=== PATIENT | male | born 1945 | race Caucasian/White ===

== ENCOUNTER 2023-11-24 09:41 | Outpatient (OUT) | payer MEDICARE, SELFPAY ==
--- NOTE | 2023-11-24 10:00 | ECG_ITS ---
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
--- NOTE | 2023-11-24 10:55 | P.GSHP_ITS ---
History of Present Illness History of Present Illness Chief complaint: right etd Narrative: Patient presents for preadmission testing. The patient reports decreased hearing in his right ear with a history of otitis media and previous ear tubes. The patient denies fever, sore throat, epistaxis, ear drainage, or any other complaints. Review of Systems ROS Narrative REVIEW OF SYSTEMS: Negative except as stated in HPI, ten or more systems reviewed. Constitutional: No fever , chills, weakness ENT: No sore throat or epistaxis Cardiovascular: No chest pain, palpitations, or activity intolerance. Chronic intermittent lower extremity edema Respiratory: No shortness of breath, cough, or wheezing Musculoskeletal: No joint pain or swelling Gastrointestinal: No abdominal pain, constipation, diarrhea, or vomiting Genitourinary: No dysuria or hematuria Neurological: No numbness, tingling, weakness, or headache Psychiatric: No mood changes PFSH [facility] Medical History (Updated 11/24/23 @ 11:02 by Flavia Andre NP) Decreased hearing ?H91.90 - Unspecified hearing loss, unspecified ear (ICD-10) Extremity edema ?R60.0 - Localized edema (ICD-10) Delayed recovery from anesthesia Contusion of right hip ?S70.01XA - Contusion of right hip, initial encounter (ICD-10) Perforation of tympanic membrane ?H72.90 - Unspecified perforation of tympanic membrane, unspecified ear (ICD- 10) Hypertension ?I10 - Essential (primary) hypertension (ICD-10) Hyperlipidemia ?E78.5 - Hyperlipidemia, unspecified (ICD-10) Gout ?M10.9 - Gout, unspecified (ICD-10) Diverticulosis ?K57.90 - Diverticulosis of intestine, part unspecified, without perforation or abscess without bleeding (ICD-10) Hypothyroid ?E03.9 - Hypothyroidism, unspecified (ICD-10) Foot drop ?M21.379 - Foot drop, unspecified foot (ICD-10) Otitis media ?H66.90 - Otitis media, unspecified, unspecified ear (ICD-10) Surgical History (Updated 11/24/23 @ 10:32 by Nury Murguia RN) History of colonoscopy ?Z98.890 - Other specified postprocedural states (ICD-10) S/P cataract extraction and insertion of intraocular lens ?Z98.49 - Cataract extraction status, unspecified eye (ICD-10) ?Z96.1 - Presence of intraocular lens (ICD-10) History of tympanoplasty ?Z98.890 - Other specified postprocedural states (ICD-10) History of tonsillectomy ?Z90.89 - Acquired absence of other organs (ICD-10) H/O ventral hernia repair ?Z98.890 - Other specified postprocedural states (ICD-10) ?Z87.19 - Personal history of other diseases of the digestive system (ICD-10) Hx of cholecystectomy ?Z90.49 - Acquired absence of other specified parts of digestive tract (ICD- 10) History of carpal tunnel release ?Z98.890 - Other specified postprocedural states (ICD-10) Hx of appendectomy ?Z90.49 - Acquired absence of other specified parts of digestive tract (ICD- 10) 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 Highest level of school completed/degree received: high school graduate Meds Home Medications and Allergies Home Medications Medication Instructions Recorded Confirmed Type allopurinol 100 mg tablet 100 mg PO Q12H 11/24/23 11/24/23 History cholecalciferol (vitamin D3) 25 25 mcg PO DAILY 11/24/23 11/24/23 History mcg (1,000 unit) tablet (Vitamin D3) doxazosin 8 mg tablet 8 mg PO DAILY 11/24/23 11/24/23 History levothyroxine 112 mcg tablet 112 mcg PO DAILY 11/24/23 11/24/23 History lisinopril 10 mg tablet 10 mg PO DAILY 11/24/23 11/24/23 History simvastatin 20 mg tablet 20 mg PO DAILY 11/24/23 11/24/23 History triamterene 37.5 1 cap PO DAILY PRN edema 11/24/23 11/24/23 History mg-hydrochlorothiazide 25 mg capsule Allergies Allergy/AdvReac Type Severity Reaction Status Date / Time No Known Drug Allergies Allergy Verified 11/24/23 10:17 Exam Narrative Exam Narrative: Constitutional: Awake, alert, comfortable, well-appearing, nontoxic, interactive, vital signs as charted Head: Normocephalic, atraumatic ENT: Left tympanic membrane pearly solis, nonerythematous, noninjected; Right tympanic membrane with effusion, naris patent, posterior oropharynx clear, oral mucosa moist Neck: Supple, normal appearance, normal range of motion, no meningeal signs, no lymphadenopathy Respiratory: No respiratory distress, breath sounds clear Cardiovascular: Regular rate and rhythm, strong and regular heart tones Musculoskeletal: Ambulates with a cane, brace intact to left ankle, no edema Skin: No rashes or induration, no lesions, only visible skin inspected Neuro: normal sensation Psychiatric: Oriented ?3, normal affect Assessment and Plan Assessment and Plan (1) Otitis media: (2) Decreased hearing: Plan Right myringotomy and insertion of ventilation tube, T-tube scheduled with Dr. Richardson 12/07/2023.
[2023-11-24 11:04] LABS: Basophils Percent Auto 0.6 % (0.2-2.0); Eosinophils Absolute Auto 0.1 10^3/uL (0.0-0.7); Eosinophils Percent Auto 1.7 % (0.9-7.0); Hematocrit 38.6 % (42.0-54.0); Hemoglobin 12.5 g/dL (14.0-18.0); Immature Granulocytes Abs Auto 0.02 10^3/uL (0.00-0.03); Immature Granulocytes Pct Auto 0.3 % (0.0-0.5); Lymphocytes Absolute Auto 1.7 10^3/uL (1.2-3.8); Lymphocytes Percent Auto 26.1 % (20.5-60.0); Mean Corpuscular HGB Conc 32.4 g/dL (29.9-35.2); Mean Corpuscular Hemoglobin 32.3 pg (25.9-34.0); Mean Corpuscular Volume 99.7 fL (80.0-94.0); Mean Platelet Volume 10.2 fL (9.5-13.5); Monocytes Absolute Auto 0.6 10^3/uL (0.3-0.8); Monocytes Percent Auto 9.4 % (1.7-12.0); Neutrophils Percent Auto 61.9 % (43.0-75.0); Platelet Count 149 10^3/uL (150-450); Red Blood Count 3.87 10^6/uL (4.70-6.10); Red Cell Distribution Width 13.2 % (11.0-15.0); White Blood Count 6.4 10^3/uL (4.0-11.0)
[2023-11-24 11:21] LABS: Anion Gap 8.3; Calcium 9.1 mg/dL (8.5-10.1); Chloride 103 mmol/L (98-107); Estimated GFR (African America >60 (>=60); Estimated GFR (Non-African Ame 54 (>=60); Glucose 99 mg/dL (74-106); Potassium 4.3 mmol/L (3.5-5.1); Sodium 136 mmol/L (136-145)
== END 2023-11-24 09:42 | disposition home or self-care (01) ==
LOC: PST 09:42
PROVIDERS: PCP Family Medicine; Visit Provider Otolaryngology
DX: Z01.810 Encounter for preprocedural cardiovascular examination (principal); Z01.812 Encounter for preprocedural laboratory examination; Z01.818 Encounter for other preprocedural examination; H65.91 Unspecified nonsuppurative otitis media, right ear
CPT/HCPCS: 80048; 85025; 93005; G0463

== ENCOUNTER 2023-12-20 13:10 | Outpatient (OUT) | payer MEDICARE, SELFPAY ==
--- OUTSIDE RECORDS SUMMARY | 2023-12-20 13:31 | XMS_ITS | CCD ---
Author Name Unknown Address [address] [place] [address] Organization [facility] Care Team Providers Care Cooling Room Attendant Name Role Phone DR NICHOLAS HARRIS Consulting Unavailable STEVEN, DR NICHOLAS Roach Attending Unavailable STEVEN, DR NICHOLAS Roach Admitting Unavailable DR NICHOLAS HARRIS Primary Care Unavailable NICHOLAS HARRIS Attending Unavailable PJ ARORA Attending Unavailable JC FERREIRA Referring Unavailable JC FERREIRA Attending Unavailable Problems Problem Classification Problem Date Documented Da te Episodic/Chronic Disorders of lipid metabolism (1 source) Hyperlipidemia, unspecified; Translations: [HYPERLIPIDEMIA UNSPECIFIED] Onset: 02-19-2023 Chronic Essential hypertension (1 source) Essential (primary) hypertension; Translations: [ESSENTIAL PRIMARY HYPERTENSION] Onset: 02-19-2023 Chronic Nutritional deficiencies (4 sources) Vitamin D deficiency, unspecified; Translations: [VITAMIN D DEFICIENCY UNSPECIFIED] Onset: 02-11-2023 Chronic Other aftercare (1 source) Other intermediate (current) drug therapy; Translations: [OTH SENIOR CARE CURRENT DRUG THERAPY] Onset: 02-19-2023 Episodic Other screening for suspected conditions (not mental disorders or infectious disease) (1 source) Encounter for screening for malignant neoplasm of prostate; Translations: [ENC SCREEN MALIG NEOPLASM PROSTATE] Onset: 02-19-2023 Episodic Thyroid disorders (1 source) Hypothyroidism, unspecified; Translations: [HYPOTHYROIDISM UNSPECIFIED] Onset: 02-19-2023 Chronic Results Test Name Value Interpretation Reference Range Facil ity CBC AUTO DIFFon 02-11-2023 BASO # 0.1 103/ul Normal 0.0-0.1 [facility] Comment on above: Performed By: #### C BC #### [facility] [address] [address] [address] Baldemar Marc Basophils/100 WBC (Bld) 1.0 % Normal 0.2-2.0 [facility] Comment on above: Performed By: #### C BC #### [facility] [address] [place] [address] Dr. Baldemar Marc EO # 0.1 103/ul Normal 0.0-0.7 [facility] Comment on above: Performed By: #### C BC #### [facility] [address] [place] [address] Dr. Baldemar Marc Eosinophils/100 WBC (Bld) 1.4 % Normal 0.9-7.0 [facility] Comment on above: Performed By: #### C BC #### [facility] [address] [place] [address] Dr. Baldemar Marc Erythrocyte distribution width (RBC) [Ratio] 13.3 % Normal 11.0-15.0 [facility] Comment on above: Performed By: #### C BC #### [facility] [address] [place] [address] Dr. Baldemar Marc Hematocrit (Bld) [Volume fraction] 40.0 % Critically low 42.0-54.0 [facility] Comment on above: Performed By: #### C BC #### [facility] [address] [place] [address] Dr. Baldemar Marc Hemoglobin (Bld) [Mass/Vol] 13.5 g/dL Critically low 14.0-18.0 [facility] Comment on above: Performed By: #### C BC #### [facility] [address] [place] [address] Dr. Baldemar Marc IG # 0.01 10e3/ul Normal 0.00-0.03 [facility] Comment on above: Performed By: #### C BC #### [facility] [address] [place] [address] Dr. Baldemar Marc IG % 0.2 % Normal 0.0-0.5 [facility] Comment on above: Performed By: #### C BC #### [facility] [address] [place] [address] Dr. Baldemar Marc LYMPH # 1.5 103/ul Normal 1.2-3.8 [facility] Comment on above: Performed By: #### C BC #### [facility] [address] [place] [address] Dr. Baldemar Marc Lymphocytes/100 WBC (Bld) 29.7 % Normal 20.5-60.0 [facility] Comment on above: Performed By: #### C BC #### [facility] [address] [place] [address] Dr. Baldemar Marc MANUAL DIFF REQ NO Normal [facility] Comment on above: Performed By: #### C BC #### [facility] [address] [place] [address] Dr. Baldemar Marc MCH (RBC) [Entitic mass] 32.5 pg Normal 25.9-34.0 [facility] Comment on above: Performed By: #### C BC #### [facility] [address] [place] [address] Dr. Baldemar Marc MCHC (RBC) [Mass/Vol] 33.8 g/dL Normal 29.9-35.2 [facility] Comment on above: Performed By: #### C BC #### [facility] [address] [place] [address] Dr. Baldemar Marc MCV (RBC) [Entitic vol] 96.2 fL Critically high 80.0-94.0 [facility] Comment on above: Performed By: #### C BC #### [facility] [address] [place] [address] Dr. Baldemar Marc MONO # 0.4 103/ul Normal 0.3-0.8 [facility] Comment on above: Performed By: #### C BC #### [facility] [address] [place] [address] Dr. Baldemar Marc Monocytes/100 WBC (Bld) 8.5 % Normal 1.7-12.0 [facility] Comment on above: Performed By: #### C BC #### [facility] [address] [place] [address] Dr. Baldemar Marc NEUT # 3.1 103/ul Normal 1.4-6.5 [facility] Comment on above: Performed By: #### C BC #### [facility] [address] [address] [address] Baldemar Marc Neutrophils/100 WBC (Bld) 59.2 % Normal 43.0-75.0 [facility] Comment on above: Performed By: #### C BC #### [facility] [address] [address] [address] Baldemar Marc Platelet mean volume (Bld) [Entitic vol] 10.1 fL Normal 9.5-13.5 [facility] Comment on above: Performed By: #### C BC #### [facility] [address] [address] [address] Baldemar Marc PLT 147 103/ul Critically low 150-450 [facility] Comment on above: Performed By: #### C BC #### [facility] [address] [place] [address] Dr. Baldemar Marc RBC 4.16 106/ul Critically low 4.70-6.[address] [facility] Comment on above: Performed By: #### C BC #### [facility] [address] [address] [address] Baldemar Marc WBC 5.2 103/ul Normal 4.0-11.0 [facility] Comment on above: Performed By: #### C BC #### [facility] [address] [place] [address] Dr. Baldemar Marc FREE T3on 02-11-2023 FREE T3 2.49 pg/mlL Normal 2.18-3.98 [facility] Comment on above: Performed By: #### L IPID, LIVER, TSH, FT3, BMP #### [facility] [address] [address] [address] Baldemar Marc FREE T4on 02-11-2023 Free T4 [Mass/Vol] 1.30 ng/dL Normal 0.76-1.46 [facility] Comment on above: Performed By: #### F T4, VITAD, PSASC #### [facility] [address] [place] [address] Dr. Baldemar Marc LIPID PROFILEon 02-11-2023 CHOL-HDL RATIO NORM SEE BELOW Normal [facility] Comment on above: Result Comment: 3.3 - 4.4 LOW RISK 4.4 - 7.1 AVERAGE RISK 7.1 - 11.0 MODERATE RISK >11.0 HIGH RISK Performed By: #### L IPID, LIVER, TSH, FT3, BMP #### [facility] [address] [address] [address] Baldemar Marc Cholesterol [Mass/Vol] 111 mg/dL Normal <=200 [facility] Comment on above: Performed By: #### L IPID, LIVER, TSH, FT3, BMP #### [facility] [address] [address] [address] Baldemar Marc Cholesterol in HDL [Mass/Vol] 49 mg/dL Normal 40-60 [facility] Comment on above: Performed By: #### L IPID, LIVER, TSH, FT3, BMP #### [facility] [address] [address] [address] Baldemar Marc Cholesterol in LDL [Mass/Vol] 49.0 mg/dL Normal [facility] Comment on above: Performed By: #### L IPID, LIVER, TSH, FT3, BMP #### [facility] [address] [address] [address] Baldemar Marc Cholesterol.total/C holesterol in HDL [Mass ratio] 2.3 {ratio} Normal [facility] Comment on above: Performed By: #### L IPID, LIVER, TSH, FT3, BMP #### [facility] [address] [address] [address] Baldemar Mrac HDL NORMAL > or = 60 mg/dl - LO W CARDIOVASCULAR RISK <40 mg/dl - HIGH CARDIOVASCULAR RISK Normal [facility] Comment on above: Performed By: #### L IPID, LIVER, TSH, FT3, BMP #### [facility] [address] [address] [address] Baldemar Marc LDL CALC NORMAL SEE BELOW Normal [facility] Comment on above: Result Comment: <100 mg/dl OPTIMAL 100 - 129 mg/dl NEAR OR ABOVE OPTIMAL 130 - 159 mg/dl BORDERLINE HIGH 160 - 189 mg/dl HIGH >190 mg/dl VERY HIGH Performed By: #### L IPID, LIVER, TSH, FT3, BMP #### [facility] [address] [place] [address] Dr. Baldemar Marc Triglyceride [Mass/Vol] 65 mg/dL Normal <=150 [facility] Comment on above: Performed By: #### L IPID, LIVER, TSH, FT3, BMP #### [facility] [address] [address] [address] Baldemar Marc VLDL CALC 13.0 mg/dL Normal [facility] Comment on above: Performed By: #### L IPID, LIVER, TSH, FT3, BMP #### [facility] [address] [place] [address] Dr. Baldemar Marc LIVER PROFILEon 02-11-2023 Albumin [Mass/Vol] 3.9 g/dL Normal 3.4-5.0 [facility] Comment on above: Performed By: #### L IPID, LIVER, TSH, FT3, BMP #### [facility] [address] [place] [address] Dr. Baldemar Marc Albumin/Globulin [Mass ratio] 1.2 {ratio} Normal [facility] Comment on above: Performed By: #### L IPID, LIVER, TSH, FT3, BMP #### [facility] [address] [place] [address] Dr. Baldemar Marc ALP [Catalytic activity/Vol] 69 U/L Normal 46-116 [facility] Comment on above: Performed By: #### L IPID, LIVER, TSH, FT3, BMP #### [facility] [address] [place] [address] Dr. Baldemar Marc ALT [Catalytic activity/Vol] 22 U/L Normal 16-63 [facility] Comment on above: Performed By: #### L IPID, LIVER, TSH, FT3, BMP #### [facility] [address] [place] [address] Dr. Baldemar Marc AST [Catalytic activity/Vol] 17 U/L Normal 15-37 [facility] Comment on above: Performed By: #### L IPID, LIVER, TSH, FT3, BMP #### [facility] [address] [address] [address] Baldemar Marc BILI, CONJUGATED 0.2 mg/dL Normal 0.0-0.2 [facility] Comment on above: Performed By: #### L IPID, LIVER, TSH, FT3, BMP #### [facility] [address] [place] [address] Dr. Baldemar Marc Bilirubin [Mass/Vol] 0.6 mg/dL Normal 0.2-1.0 [facility] Comment on above: Performed By: #### L IPID, LIVER, TSH, FT3, BMP #### [facility] [address] [place] [address] Dr. Baldemar Marc Globulin (S) [Mass/Vol] 3.2 g/dL Normal [facility] Comment on above: Performed By: #### L IPID, LIVER, TSH, FT3, BMP #### [facility] [address] [place] [address] Dr. Baldemar Marc Protein [Mass/Vol] 7.1 g/dL Normal 6.4-8.2 [facility] Comment on above: Performed By: #### L IPID, LIVER, TSH, FT3, BMP #### [facility] [address] [place] [address] Dr. Baldemar Marc PROF CHEM 8 (BAS METB)on Anion gap [Moles/Vol] 11.4 mmol/L Normal [facility] Comment on above: Performed By: #### L IPID, LIVER, TSH, FT3, BMP #### [facility] [address] [place] [address] Dr. Baldemar Marc Calcium [Mass/Vol] 9.4 mg/dL Normal 8.5-10.1 [facility] Comment on above: Performed By: #### L IPID, LIVER, TSH, FT3, BMP #### [facility] [address] [place] [address] Dr. Baldemar Marc Chloride [Moles/Vol] 102 mmol/L Normal 98-107 [facility] Comment on above: Performed By: #### L IPID, LIVER, TSH, FT3, BMP #### [facility] [address] [place] [address] Dr. Baldemar Marc CO2 [Moles/Vol] 30.8 mmol/L Normal 21.0-32.0 [facility] Comment on above: Performed By: #### L IPID, LIVER, TSH, FT3, BMP #### [facility] [address] [address] [address] Baldemar Marc Creatinine [Mass/Vol] 1.13 mg/dL Normal 0.70-1.30 [facility] Comment on above: Performed By: #### L IPID, LIVER, TSH, FT3, BMP #### [facility] [address] [place] [address] Dr. Baldemar Marc EGFR-AF LATVIAN >60 Normal >=60 [facility] Comment on above: Performed By: #### L IPID, LIVER, TSH, FT3, BMP #### [facility] [address] [place] [address] Dr. Baldemar Marc EGFR-NON AF LATVIAN >60 Normal >=60 [facility] Comment on above: Performed By: #### L IPID, LIVER, TSH, FT3, BMP #### [facility] [address] [place] [address] Dr. Baldemar Marc Glucose [Mass/Vol] 104 mg/dL Normal 74-106 [facility] Comment on above: Performed By: #### L IPID, LIVER, TSH, FT3, BMP #### [facility] [address] [place] [address] Dr. Baldemar Marc Potassium [Moles/Vol] 4.2 mmol/L Normal 3.5-5.1 [facility] Comment on above: Performed By: #### L IPID, LIVER, TSH, FT3, BMP #### [facility] [address] [place] [address] Dr. Baldemar Marc Sodium [Moles/Vol] 140 mmol/L Normal 136-145 [facility] Comment on above: Performed By: #### L IPID, LIVER, TSH, FT3, BMP #### [facility] [address] [address] [address] Baldemar Marc Urea nitrogen [Mass/Vol] 17.0 mg/dL Normal 7.0-18.0 [facility] Comment on above: Performed By: #### L IPID, LIVER, TSH, FT3, BMP #### [facility] [address] [place] [address] Dr. Baldemar Marc Urea nitrogen/Creatinine [Mass ratio] 15.0 mg/mg Normal [facility] Comment on above: Performed By: #### L IPID, LIVER, TSH, FT3, BMP #### [facility] [address] [place] [address] Dr. Baldemar Marc TSHon 02-11-2023 TSH 0.571 uIU/mL Normal 0.358-3.740 [facility] Comment on above: Performed By: #### L IPID, LIVER, TSH, FT3, BMP #### [facility] [address] [place] [address] Dr. Baldemar Marc VITAMIN D 25 OHon 02-11-2023 VIT D 25-OH 46.2 ng/mL Normal [facility] Comment on above: Performed By: #### F T4, VITAD, PSASC #### [facility] [address] [place] [address] Dr. Baldemar Marc VIT D RANGES SEE BELOW Normal [facility] Comment on above: Result Comment: <20 ng/mL Vit D deficient 20 - <30 ng/mL Vit D insufficient 30 - 100 ng/mL Vit D sufficient >100 ng/mL Potential Toxicity Performed By: #### F T4, VITAD, PSASC #### [facility] [address] [place] [address] Dr. Baldemar Marc Encounters Encounter Date Encounter Type Care Provider Facility Start: 12-02-2023 End: 12-02-2023 ambulatory NICHOLAS HARRIS Not Available Start: 11-03-2023 End: 11-03-2023 ambulatory JC FERREIRA Not Available Start: 11-01-2023 End: 11-01-2023 ambulatory PJ ARORA Not Available Start: 02-11-2023 End: 02-12-[address] NICHOLAS HARRIS Facility:[facility] Procedures Date Procedure Procedure Detail Performing Clinician Start: 02-11-[address] NICHOLAS CHILEL Comment on above: Performed By: #### F T4, VITAD, PSASC #### [facility] [address] [place], [place] [address] Dr. Baldemar Marc Payers Date Payer Category Payer Medicare [id number] 1958 Unknown [id number] 1945 Unknown [id number] [id number] [id number] 1945 Unknown [id number] [id number] 1945 Unknown [id number] 1945 Unknown [id number] Summary Purpose Family History No Family History Records FoundNo Family History Records Found Advance Directives No Advanced Directives Records FoundNo Advanced Directives Records Found Additional Source Comments (unrecognized sect ion and content) No Status Records FoundNo Status Records Found INFORMATION SOURCE (unrecogn ized section and content) DATE CREATED AUTHOR [facility] DATE CREATED AUTHOR AUTHOR'S ORGANIZ ATION 12/03/2023 [facility] Special[facility] FOR RECORDS PERTAINING TO PATIENTS WHO ARE OR HAVE BEEN ENROLLED IN A CHEMICAL DEPENDENCY/SUBSTANCEABUSE PROGRAM, SOME INFORMATION MAY BE OMITTED. This clinical summary was aggregated from multiple sources. Caution should be exercised in using it in the provision of clinical care. This summary normalizes information from multiple sources, and as a consequence, information in this document may materially change the coding, format and clinical context of patient data. In addition, data may be omitted in some cases. CLINICAL DECISIONS SHOULD BE BASED ON THE PRIMARY CLINICAL RECORDS. [facility] Organizer [facility]. provides no warranty or guarantee of the accuracy or completeness of information in this document.
== END 2023-12-20 13:11 | disposition home or self-care (01) ==
LOC: PST 13:11
PROVIDERS: PCP Family Medicine; Visit Provider Otolaryngology
DX: Z01.818 Encounter for other preprocedural examination (principal); H65.91 Unspecified nonsuppurative otitis media, right ear; I10 Essential (primary) hypertension

== ENCOUNTER 2023-12-28 08:38 | Day surgery (SDC) | payer MEDICARE, SELFPAY ==
[2023-11-24 10:25] VITALS: BP 126/73; PULSE 80; RESP 16; TEMP 36.3; O2SAT 96; BMI 32.9
--- NOTE | 2023-12-20 11:31 | PC.NURSE ---
States no changes in medication or medical assessment since last interview; has recovered from shingles
[2023-12-28] VITALS (9 sets, daily range): BP systolic 88–137; BP diastolic 58–83; PULSE 60–85; RESP 12–20; TEMP 36.6–36.7; O2SAT 12–97; BMI 33.1
--- NOTE | 2023-12-28 | OP_ITS ---
OPERATION DATE: 12/28/2023 PRIMARY CARE PHYSICIAN: Jori Anne M.D. SURGEON: Luanne Richardson M.D. PREOPERATIVE DIAGNOSIS: Right eustachian tube dysfunction and otitis media with effusion. POSTOPERATIVE DIAGNOSIS: Right eustachian tube dysfunction and otitis media with effusion. PROCEDURE: Right myringotomy and tube with microdissection, placement of a T- tube. ANESTHESIA: General. COMPLICATIONS: None. FINDINGS: Serous effusions. INDICATIONS: This 78-year-old man with a life long history of chronic eustachian tube dysfunction presented with right otitis media with effusion, unresponsive to aggressive medical management. PROCEDURE: Patient identified in the holding area and taken back to the OR where he was placed in the supine position. After induction of general anesthesia, the right ear was approached with the otomicroscope. An anterior radial myringotomy was performed. Serous effusion was suctioned from the ear. A modified Connor?s T-tube was folded and inserted through the myringotomy and opened in the middle ear using microdissection. Patient was then awakened and taken to the recovery room in good condition. KRISTY
--- OUTSIDE RECORDS SUMMARY | 2023-12-28 08:50 | XMS_ITS | CCD ---
Author Name Unknown Address [address] [facility] [address] [place] [id number] Organization [facility] Care Team Providers Care Message Clerk Name Role Phone DR JORI HARRIS Consulting Unavailable STEVEN, DR JORI Roach Attending Unavailable DR JORI HARRIS Admitting Unavailable DR JORI HARRIS Primary Care Unavailable JORI HARRIS Attending Unavailable PJ ARORA Attending Unavailable JC RICHARDSON Referring Unavailable JC RICHARDSON Attending Unavailable Jori Harris MD Primary Care Provider [phone] Medications Current Medications Medication Drug Class(es) Dates Sig (Normalized) Sig (Original) allopurinol 100 mg oral tablet (1 source) Xanthine Oxidase Inhibitor take 1 tablet by mouth every twelve hours allopurinol (Zyloprim) 100 MG tablet Take 100 mg by mouth every 12 (twelve) hours. 0 Active doxazosin 8 mg oral tablet (1 source) alpha-Adrenergic Deng take 1 tablet by mouth once daily doxazosin (Cardura) 8 MG tablet Take 8 mg by mouth 1 (one) time each day at the same time. 0 Active fluticasone propionate 0.05 mg/actuat metered dose nasal spray (1 source) Corticosteroid Start: 3 fluticasone (Flonase) 50 MCG/ACT nasal spray Indications: OME (otitis media with effusion), right 2 sprays on right side BID. Shake gently. Before first use, prime pump. After use, clean tip and replace cap. 16 g 11 09/20/2023 Active hydroCHLOROthiazide 25 mg / triamterene 37.5 mg oral tablet (1 source) Potassium-sparing Diuretic, Thiazide Diuretic take 1 tablet by mouth once daily triamterene-hydro chlorothiazide (Maxzide-25) 37.5-25 MG tablet Take 1 tablet by mouth 1 (one) time each day at the same time. 0 Active levothyroxine sodium 0.112 mg oral tablet (1 source) l-Thyroxine take 1 tablet by mouth once daily levothyroxine (Synthroid, Levoxyl) 112 MCG tablet Take 112 mcg by mouth 1 (one) time each day at the same time. 0 Active lisinopril 10 mg oral tablet (1 source) Angiotensin Converting Enzyme Inhibitor take 1 tablet by mouth once daily lisinopril 10 MG tablet Take 10 mg by mouth 1 (one) time each day at the same time. 0 Active simvastatin 20 mg oral tablet (1 source) HMG-CoA Reductase Inhibitor Start: take 1 tablet by mouth once daily at bedtime simvastatin (Zocor) 20 MG tablet Indications: Dyslipidemia (CMS/HCC) TAKE 1 TABLET BY MOUTH EVERYDAY AT BEDTIME 90 tablet 3 10/28/2023 Active Problems Active Problems Problem Classification Problem Date Documented Da te Episodic/Chronic Chronic kidney disease (1 source) Chronic kidney disease stage 3A ; Translations: [Stage 3a chronic kidney disease (CKD)] Onset: 12-02-2023 12-02-2023 Chronic Disorders of lipid metabolism (3 sources) Hyperlipidemia, unspecified; Translations: [Dyslipidemia] Onset: 02-19-2023 Resolved: 12-02-2023 12-02-2023 Chronic Diverticulosis and diverticulitis (1 source) Diverticular disease; Translations: [Diverticulosis of intestine, part unspecified, without perforation or abscess without bleeding] Onset: 09-16-2023 09-16-2023 Chronic Essential hypertension (2 sources) Essential (primary) hypertension; Translations: [Benign essential hypertension] Onset: 02-19-2023 12-02-2023 Chronic Gout and other crystal arthropathies (1 source) Gout; Translations: [Gout, unspecified] Onset: 09-16-2023 09-16-2023 Chronic Nutritional deficiencies (5 sources) Vitamin D deficiency, unspecified; Translations: [Vitamin D deficiency] Onset: 02-11-2023 Chronic Other aftercare (1 source) Other mcc (current) drug therapy; Translations: [OTH MINERAL SURVEYOR CURRENT DRUG THERAPY] Onset: 02-19-2023 Episodic Other connective tissue disease (1 source) History of repair of hip joint; Translations: [Presence of left artificial hip joint] Onset: 09-16-2023 09-16-2023 Chronic Other screening for suspected conditions (not mental disorders or infectious disease) (1 source) Encounter for screening for malignant neoplasm of prostate; Translations: [ENC SCREEN MALIG NEOPLASM PROSTATE] Onset: 02-19-2023 Episodic Thyroid disorders (2 sources) Hypothyroidism, unspecified; Translations: [Hypothyroidism] Onset: 02-19-2023 12-02-2023 Chronic Viral infection (1 source) Herpes zoster without complication; Translations: [Zoster without complications] Onset: 12-02-2023 12-02-2023 Episodic Past or Other Problems Problem Classification Problem Date Documented Date Episodic/Chronic Acquired foot deformities (1 source) Foot-drop; Translations: [Foot drop, unspecified foot] Onset: 09-16-2023 09-16-2023 Episodic Otitis media and related conditions (3 sources) Non-suppurative otitis media; Translations: [Unspecified nonsuppurative otitis media, unspecified ear] Onset: 09-16-2023 Resolved: 12-02-2023 12-02-2023 Episodic Superficial injury; contusion (1 source) Contusion of right hip region; Translations: [Contusion of right hip, initial encounter] Onset: 09-16-2023 Resolved: 12-02-2023 12-02-2023 Episodic Results Test Name Value Interpretation Reference Range Facil ity CBC AUTO DIFFon 02-11-2023 BASO # 0.1 103/ul Normal 0.0-0.1 [facility] Comment on above: Performed By: #### C BC #### [facility] [address] [place] [address] Dr. Baldemar Marc Basophils/100 WBC (Bld) 1.0 % Normal 0.2-2.0 [facility] Comment on above: Performed By: #### C BC #### [facility] [address] [place] [address] Dr. Baldemar Marc EO # 0.1 103/ul Normal 0.0-0.7 [facility] Comment on above: Performed By: #### C BC #### [facility] [address] [place] [address] Dr. Baldemar Marc Eosinophils/100 WBC (Bld) 1.4 % Normal 0.9-7.0 [facility] Comment on above: Performed By: #### C BC #### [facility] [address] [place] [address] Dr. Baldemar Marc Erythrocyte distribution width (RBC) [Ratio] 13.3 % Normal 11.0-15.0 [facility] Comment on above: Performed By: #### C BC #### [facility] [address] [place] [address] Dr. Baldemar Marc Hematocrit (Bld) [Volume fraction] 40.0 % Critically low 42.0-54.0 [facility] Comment on above: Performed By: #### C BC #### [facility] [address] [place] [address] Dr. Baldemar Marc Hemoglobin (Bld) [Mass/Vol] 13.5 g/dL Critically low 14.0-18.0 [facility] Comment on above: Performed By: #### C BC #### [facility] [address] [place] [address] Dr. Baldemar Marc IG # 0.01 10e3/ul Normal 0.00-0.03 [facility] Comment on above: Performed By: #### C BC #### [facility] [address] [place] [address] Dr. Baldemar Marc IG % 0.2 % Normal 0.0-0.5 [facility] Comment on above: Performed By: #### C BC #### [facility] [address] [place] [address] Dr. Baldemar Marc LYMPH # 1.5 103/ul Normal 1.2-3.8 [facility] Comment on above: Performed By: #### C BC #### [facility] [address] [place] [address] Dr. Baldemar Marc Lymphocytes/100 WBC (Bld) 29.7 % Normal 20.5-60.0 [facility] Comment on above: Performed By: #### C BC #### [facility] [address] [place] [address] Dr. Badlemar Marc MANUAL DIFF REQ NO Normal [facility] Comment on above: Performed By: #### C BC #### [facility] [address] [place] [address] Dr. Baldemar Marc MCH (RBC) [Entitic mass] 32.5 pg Normal 25.9-34.0 [facility] Comment on above: Performed By: #### C BC #### [facility] [address] [place] [address] Dr. Baldemar Marc MCHC (RBC) [Mass/Vol] 33.8 g/dL Normal 29.9-35.2 [facility] Comment on above: Performed By: #### C BC #### [facility] [address] [place] [address] Dr. Baldemar Marc MCV (RBC) [Entitic vol] 96.2 fL Critically high 80.0-94.0 [facility] Comment on above: Performed By: #### C BC #### [facility] [address] [place] [address] Dr. Baldemar Marc MONO # 0.4 103/ul Normal 0.3-0.8 [facility] Comment on above: Performed By: #### C BC #### [facility] [address] [place] [address] Dr. Baldemar Marc Monocytes/100 WBC (Bld) 8.5 % Normal 1.7-12.0 [facility] Comment on above: Performed By: #### C BC #### [facility] [address] [place] [address] Dr. Baldemar Marc NEUT # 3.1 103/ul Normal 1.4-6.5 [facility] Comment on above: Performed By: #### C BC #### [facility] [address] [place] [address] Dr. Baldemar Marc Neutrophils/100 WBC (Bld) 59.2 % Normal 43.0-75.0 [facility] Comment on above: Performed By: #### C BC #### [facility] [address] [place] [address] Dr. Baldemar Marc Platelet mean volume (Bld) [Entitic vol] 10.1 fL Normal 9.5-13.5 [facility] Comment on above: Performed By: #### C BC #### [facility] [address] [place] [address] Dr. Baldemar Marc PLT 147 103/ul Critically low 150-450 [facility] Comment on above: Performed By: #### C BC #### [facility] [address] [address] [address] Baldemar Marc RBC 4.16 106/ul Critically low 4.70-6.10 [facility] Comment on above: Performed By: #### C BC #### [facility] [address] [place] [address] Dr. Baldemar Marc WBC 5.2 103/ul Normal 4.0-11.0 [facility] Comment on above: Performed By: #### C BC #### [facility] [address] [place] [address] Dr. Baldemar Marc FREE T3on 02-11-2023 FREE T3 2.49 pg/mlL Normal 2.18-3.98 [facility] Comment on above: Performed By: #### L IPID, LIVER, TSH, FT3, BMP #### [facility] [address] [place] [address] Dr. Baldemar Marc FREE T4on 02-11-2023 Free T4 [Mass/Vol] 1.30 ng/dL Normal 0.76-1.46 [facility] Comment on above: Performed By: #### F T4, VITAD, PSASC #### [facility] [address] [place] [address] Dr. Baldemar Marc LIPID PROFILEon 02-11-2023 CHOL-HDL RATIO NORM SEE BELOW Normal [facility] Comment on above: Result Comment: 3.3 - 4.4 LOW RISK 4.4 - 7.1 AVERAGE RISK 7.1 - 11.0 MODERATE RISK >11.0 HIGH RISK Performed By: #### L IPID, LIVER, TSH, FT3, BMP #### [facility] [address] [place] [address] Dr. Baldemar Marc Cholesterol [Mass/Vol] 111 mg/dL Normal <=200 [facility] Comment on above: Performed By: #### L IPID, LIVER, TSH, FT3, BMP #### [facility] [address] [address] [address] Baldemar Marc Cholesterol in HDL [Mass/Vol] 49 mg/dL Normal 40-60 [facility] Comment on above: Performed By: #### L IPID, LIVER, TSH, FT3, BMP #### [facility] [address] [address] [address] Baldemar Marc Cholesterol in LDL [Mass/Vol] 49.0 mg/dL Normal [facility] Comment on above: Performed By: #### L IPID, LIVER, TSH, FT3, BMP #### [facility] [address] [address] [address] Baldemar Marc Cholesterol.total/C holesterol in HDL [Mass ratio] 2.3 {ratio} Normal [facility] Comment on above: Performed By: #### L IPID, LIVER, TSH, FT3, BMP #### [facility] [address] [address] [address] Baldemar Marc HDL NORMAL > or = 60 mg/dl - LO W CARDIOVASCULAR RISK <40 mg/dl - HIGH CARDIOVASCULAR RISK Normal [facility] Comment on above: Performed By: #### L IPID, LIVER, TSH, FT3, BMP #### [facility] [address] [address] [address] Baldemar Marc LDL CALC NORMAL SEE BELOW Normal [facility] Comment on above: Result Comment: <100 mg/dl OPTIMAL 100 - 129 mg/dl NEAR OR ABOVE OPTIMAL 130 - 159 mg/dl BORDERLINE HIGH 160 - 189 mg/dl HIGH >190 mg/dl VERY HIGH Performed By: #### L IPID, LIVER, TSH, FT3, BMP #### [facility] [address] [address] [address] Baldemar Marc Triglyceride [Mass/Vol] 65 mg/dL Normal <=150 [facility] Comment on above: Performed By: #### L IPID, LIVER, TSH, FT3, BMP #### [facility] [address] [place] [address] Dr. Baldemar Marc VLDL CALC 13.0 mg/dL Normal [facility] Comment on above: Performed By: #### L IPID, LIVER, TSH, FT3, BMP #### [facility] [address] [place] [address] Dr. Baldemar Marc LIVER PROFILEon 02-11-2023 Albumin [Mass/Vol] 3.9 g/dL Normal 3.4-5.0 [facility] Comment on above: Performed By: #### L IPID, LIVER, TSH, FT3, BMP #### [facility] [address] [place] [address] Dr. Baldemar Marc Albumin/Globulin [Mass ratio] 1.2 {ratio} Normal [facility] Comment on above: Performed By: #### L IPID, LIVER, TSH, FT3, BMP #### [facility] [address] [place] [address] Dr. Baldemar Marc ALP [Catalytic activity/Vol] 69 U/L Normal 46-116 [facility] Comment on above: Performed By: #### L IPID, LIVER, TSH, FT3, BMP #### [facility] [address] [place] [address] Dr. Baldemar Marc ALT [Catalytic activity/Vol] 22 U/L Normal 16-63 [facility] Comment on above: Performed By: #### L IPID, LIVER, TSH, FT3, BMP #### [facility] [address] [place] [address] Dr. Baldemar Marc AST [Catalytic activity/Vol] 17 U/L Normal 15-37 [facility] Comment on above: Performed By: #### L IPID, LIVER, TSH, FT3, BMP #### [facility] [address] [place] [address] Dr. Baldemar Marc BILI, CONJUGATED 0.2 mg/dL Normal 0.0-0.2 [facility] Comment on above: Performed By: #### L IPID, LIVER, TSH, FT3, BMP #### [facility] [address] [place] [address] Dr. Baldemar Marc Bilirubin [Mass/Vol] 0.6 mg/dL Normal 0.2-1.0 [facility] Comment on above: Performed By: #### L IPID, LIVER, TSH, FT3, BMP #### [facility] [address] [place] [address] Dr. Baldemar Marc Globulin (S) [Mass/Vol] 3.2 g/dL Normal [facility] Comment on above: Performed By: #### L IPID, LIVER, TSH, FT3, BMP #### [facility] [address] [place] [address] Dr. Baldemar Marc Protein [Mass/Vol] 7.1 g/dL Normal 6.4-8.2 [facility] Comment on above: Performed By: #### L IPID, LIVER, TSH, FT3, BMP #### [facility] [address] [place] [address] Dr. Baldemar Marc PROF CHEM 8 (BAS METB)on Anion gap [Moles/Vol] 11.4 mmol/L Normal [facility] Comment on above: Performed By: #### L IPID, LIVER, TSH, FT3, BMP #### [facility] [address] [place] [address] Dr. Baldemar Marc Calcium [Mass/Vol] 9.4 mg/dL Normal 8.5-10.1 [facility] Comment on above: Performed By: #### L IPID, LIVER, TSH, FT3, BMP #### [facility] [address] [place] [address] Dr. Baldemar Marc Chloride [Moles/Vol] 102 mmol/L Normal 98-107 [facility] Comment on above: Performed By: #### L IPID, LIVER, TSH, FT3, BMP #### [facility] [address] [place] [address] Dr. Baldemar Marc CO2 [Moles/Vol] 30.8 mmol/L Normal 21.0-32.0 [facility] Comment on above: Performed By: #### L IPID, LIVER, TSH, FT3, BMP #### [facility] [address] [address] [address] Baldemar Marc Creatinine [Mass/Vol] 1.13 mg/dL Normal 0.70-1.30 [facility] Comment on above: Performed By: #### L IPID, LIVER, TSH, FT3, BMP #### [facility] [address] [place] [address] Dr. Baldemar Marc EGFR-AF GREEK >60 Normal >=60 [facility] Comment on above: Performed By: #### L IPID, LIVER, TSH, FT3, BMP #### [facility] [address] [place] [address] Dr. Baldemar Marc EGFR-NON AF GREEK >60 Normal >=60 [facility] Comment on above: Performed By: #### L IPID, LIVER, TSH, FT3, BMP #### [facility] [address] [place] [address] Dr. Baldemar Marc Glucose [Mass/Vol] 104 mg/dL Normal 74-106 [facility] Comment on above: Performed By: #### L IPID, LIVER, TSH, FT3, BMP #### [facility] [address] [place] [address] Dr. Baldemar Marc Potassium [Moles/Vol] 4.2 mmol/L Normal 3.5-5.1 [facility] Comment on above: Performed By: #### L IPID, LIVER, TSH, FT3, BMP #### [facility] [address] [place] [address] Dr. Baldemar Marc Sodium [Moles/Vol] 140 mmol/L Normal 136-145 [facility] Comment on above: Performed By: #### L IPID, LIVER, TSH, FT3, BMP #### [facility] [address] [place] [address] Dr. Baldemar Marc Urea nitrogen [Mass/Vol] 17.0 mg/dL Normal 7.0-18.0 [facility] Comment on above: Performed By: #### L IPID, LIVER, TSH, FT3, BMP #### [facility] [address] [place] [address] Dr. Baldemar Marc Urea nitrogen/Creatinine [Mass ratio] 15.0 mg/mg Normal [facility] Comment on above: Performed By: #### L IPID, LIVER, TSH, FT3, BMP #### [facility] [address] [address] [address] Baldemar Marc TSHon 02-11-2023 TSH 0.571 uIU/mL Normal 0.358-3.740 [facility] Comment on above: Performed By: #### L IPID, LIVER, TSH, FT3, BMP #### [facility] [address] [address] [address] Baldemar Marc VITAMIN D 25 OHon 02-11-2023 VIT D 25-OH 46.2 ng/mL Normal [facility] Comment on above: Performed By: #### F T4, VITAD, PSASC #### [facility] [address] [address] [address] Baldemar Marc VIT D RANGES SEE BELOW Normal [facility] Comment on above: Result Comment: <20 ng/mL Vit D deficient 20 - <30 ng/mL Vit D insufficient 30 - 100 ng/mL Vit D sufficient >100 ng/mL Potential Toxicity Performed By: #### F T4, VITAD, PSASC #### [facility] [address] [address] [address] Baldemar Marc Encounters Encounter Date Encounter Type Care Provider Facility Start: 12-24-2023 Chart abstracting Jc ambrocio MD Work Phone: [facility] Start: 12-02-2023 End: 12-02-2023 ambulatory JORI HARRIS Not Available Start: 11-03-2023 End: 11-03-2023 ambulatory JC RICHARDSON Not Available Start: 11-01-2023 End: 11-01-2023 ambulatory PJ ARORA Not Available Start: 02-11-2023 End: 02-12-[address] JORI HARRIS Facility: Procedures Date Procedure Procedure Detail Performing Clinician Start: 02-11-[address] JORI CHILEL Comment on above: Performed By: #### F T4, VITAD, PSASC #### [facility] [address] [address] [address] Baldemar Marc Plan of Treatment Date Care Activity Detail Author Start: 02-08-2024 End: 02-08-2024 Patient encounter procedure 02/08/2024 10:45 AM EDT Office Visit [facility] [address] [place] [address] Jori Harris MD [address] [place] [address] [facility] Start: 01-17-2024 End: 01-17-2024 Patient encounter procedure 01/17/2024 9:50 AM EST Office Visit [facility] [address] [facility] [address] [place] [id number] Jc Richardson MD [address] [facility] [address] [place] [address] [facility] Start: 12-28-2023 End: 12-28-2023 Patient encounter procedure 12/28/2023 10:30 AM EST Procedure Visit [facility] Jc Richardson MD [address] [facility] [address] [place] [address] [facility] Start: 1945 Medicare Annual Well ness (AWV) Medicare Annual Wellness (AWV) [facility] Immunizations Immunization Date Immunization Notes Care Provider Fa [facility] 10-27-2018 pneumococcal polysaccharide vaccine, 23 valmarcia Richardson MD Work Phone: [facility] 11-12-2017 pneumococcal polysaccharide vaccine, 23 valmarcia Richardson MD Work Phone: [facility] 10-18-2017 pneumococcal conjuga te vaccine, 13 valmarcia Richardson MD Work Phone: [facility] 05-23-2014 zoster vaccine, live Jc Richardson MD Work Phone: [facility] Payers Date Payer Category Payer Unknown AARP AARP [id number] [id number]-Present [address] [place] [address] [id number] 2011 Medicare MEDICARE MEDICAR E PART B [id number] 2011-Present [address] [address] [place] [address] Medicare [id number] 1959 Medicare [id number] 1959 Unknown [id number] 1945 Unknown [id number] 1945 Unknown [id number] 1946 Unknown [id number] 1945 Unknown [id number] Social History Date Type Detail Facility Start: 09-16-2023 Tobacco smoking status NHIS Never sm oked tobacco [facility] Start: 09-16-2023 Tobacco use and exposure Smoke less tobacco non-user [facility] Start: 12-02-2023 Alcohol intake Current drinke r of alcohol (finding) [facility] Start: 12-02-2023 End: 12-04-2023 History of Social function [facility] Start: 12-02-2023 End: 12-04-2023 Alcohol Use Disorder Identification Test - Consumption [AUDIT-C] [facility] How often to you hav e a drink containing alcohol? Monthly or less [facility] How many standard dr inks containing alcohol do you have on a typical day? 1 or 2 [facility] How often do you hav e 6 or more drinks on 1 occasion? Never [facility] Start: 12-01-2023 Alcohol Comment caffeine intak e : 1-2 cups per day [facility] Start: 1945 Sex Assigned At Not on file [facility] Summary Purpose Family History No Family History Records FoundNo Family History Records Found Advance Directives No Advanced Directives Records FoundNo Advanced Directives Records Found Additional Source Comments (unrecognized sect ion and content) No Status Records FoundNo Status Records Found INFORMATION SOURCE (unrecogn ized section and content) DATE CREATED AUTHOR 02/20/2023 [facility] DATE CREATED AUTHOR AUTHOR'S ORGANIZ ATION 12/03/[address] [facility] Care Teams (unrecognized sec tion and content) Message Clerk Relationship Specialty Start Date End Date Jori Harris MD PCP - General Family Medicine 07/16/23 FOR RECORDS PERTAINING TO PATIENTS WHO ARE [...] BE BASED ON THE PRIMARY CLINICAL RECORDS. [employer] provides no warranty or guarantee of the accuracy or completeness of information in this document.
[2023-12-28] MEDS: LACTATED RINGER'S SOLUTION 1,000 ML 50 ML IV (09:13)
== END 2023-12-28 11:47 | disposition home or self-care (01) ==
PROVIDERS: PCP Family Medicine; Visit Provider Otolaryngology
PROC: (CPT 69436; principal; 2023-12-28 09:50)
DX: H65.91 Unspecified nonsuppurative otitis media, right ear (principal); H69.81 Other specified disorders of Eustachian tube, right ear; I10 Essential (primary) hypertension; E78.5 Hyperlipidemia, unspecified; M10.9 Gout, unspecified; K57.90 Diverticulosis of intestine, part unspecified, without perforation or abscess without bleeding; E03.9 Hypothyroidism, unspecified; M21.379 Foot drop, unspecified foot; Z90.49 Acquired absence of other specified parts of digestive tract; Z96.642 Presence of left artificial hip joint; Z87.891 Personal history of nicotine dependence
CPT/HCPCS: 69436; 36415; J1100; J2371; J2405; J2704; J3010

== ENCOUNTER 2024-07-31 10:34 | Outpatient (OUT) | payer MEDICARE, SELFPAY ==
--- OUTSIDE RECORDS SUMMARY | 2024-07-31 10:40 | XMS_ITS | CCD ---
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 Role Phone DR NICHOLAS HARRIS Consulting Unavailable DR NICHOLAS HARRIS Attending Unavailable DR NICHOLAS HARRIS Admitting Unavailable STEVEN, DR NICHOLAS Roach Primary Care Unavailable Nicholas Harris MD Primary Care Provider NICHOLAS HARRIS Attending Unavailable JC RICHARDSON Attending Unavailable PJ ARORA Attending Unavailable TIMMIJC Caruso Referring Unavailable TIMJC ADAM Attending Unavailable NICHOLAS HARRIS Attending Unavailable Medications Current Medications Medication Drug Class(es) Dates [...] tablet (1 source) HMG-CoA Reductase Inhibitor Start: 3 take 1 tablet by mouth once daily [...] 02-11-2023 Chronic Other aftercare (1 source) 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 Baldemar Marc Basophils/100 WBC (Bld) 1.0 % Normal 0.2-2.0 [facility] Comment on above: Performed By: #### C BC #### [facility] [address] [address] [address] Baldemar Marc EO # 0.1 103/ul Normal 0.0-0.7 [facility] Comment on above: Performed By: #### C BC #### [facility] [address] [address] [address] Baldemar Marc Eosinophils/100 WBC (Bld) 1.4 % Normal 0.9-7.0 [facility] Comment on above: Performed By: #### C BC #### [facility] [address] [place] [address] Dr. Baldemar Marc Erythrocyte distribution width (RBC) [Ratio] 13.3 % Normal 11.0-15.0 [facility] Comment on above: Performed By: #### C BC #### [facility] [address] [place] [address] Dr. Baldemar Marc Hematocrit (Bld) [Volume fraction] 40.0 % Critically low 42.0-54.0 [facility] Comment on above: Performed By: #### C BC #### [facility] [address] [place] [address] Dr. Baldemar Marc Hemoglobin (Bld) [Mass/Vol] 13.5 g/dL Critically low 14.0-18.0 [facility] Comment on above: Performed By: #### C BC #### [facility] [address] [place] [address] Dr. Baldemar Marc IG # 0.01 10e3/ul Normal 0.00-0.03 [facility] Comment on above: Performed By: #### C BC #### [facility] [address] [place] [address] Dr. Baldemar Marc IG % 0.2 % Normal 0.0-0.5 [facility] Comment on above: Performed By: #### C BC #### [facility] [address] [place] [address] Dr. Baldemar Marc LYMPH # 1.5 103/ul Normal 1.2-3.8 [facility] Comment on above: Performed By: #### C BC #### [facility] [address] [place] [address] Dr. Baldemar Marc Lymphocytes/100 WBC (Bld) 29.7 % Normal 20.5-60.0 [facility] Comment on above: Performed By: #### C BC #### [facility] [address] [place] [address] Dr. Baldemar Marc MANUAL DIFF REQ NO Normal [facility] Comment on above: Performed By: #### C BC #### [facility] [address] [place] [address] Dr. Baldemar Marc MCH (RBC) [Entitic mass] 32.5 pg Normal 25.9-34.0 [facility] Comment on above: Performed By: #### C BC #### [facility] [address] [place] [address] Dr. Baldemar Marc MCHC (RBC) [Mass/Vol] 33.8 g/dL Normal 29.9-35.2 [facility] Comment on above: Performed By: #### C BC #### [facility] [address] [place] [address] Dr. Baldemar Marc MCV (RBC) [Entitic vol] 96.2 fL Critically high 80.0-94.0 [facility] Comment on above: Performed By: #### C BC #### [facility] [address] [place] [address] Dr. Baldemar Marc MONO # 0.4 103/ul Normal 0.3-0.8 [facility] Comment on above: Performed By: #### C BC #### [facility] [address] [place] [address] Dr. Baldemar Marc Monocytes/100 WBC (Bld) 8.5 % Normal 1.7-12.0 [facility] Comment on above: Performed By: #### C BC #### [facility] [address] [place] [address] Dr. Baldemar Marc NEUT # 3.1 103/ul Normal 1.4-6.5 [facility] Comment on above: Performed By: #### C BC #### [facility] [address] [place] [address] Dr. Baldemar Marc Neutrophils/100 WBC (Bld) 59.2 % Normal 43.0-75.0 [facility] Comment on above: Performed By: #### C BC #### [facility] [address] [place] [address] Dr. Baldemar Marc Platelet mean volume (Bld) [Entitic vol] 10.1 fL Normal 9.5-13.5 [facility] Comment on above: Performed By: #### C BC #### [facility] [address] [address] [address] Baldemar Marc PLT 147 103/ul Critically low 150-450 [facility] Comment on above: Performed By: #### C BC #### [facility] [address] [address] [address] Baldemar Marc RBC 4.16 106/ul Critically low 4.70-6.10 [facility] Comment on above: Performed By: #### C BC #### [facility] [address] [address] [address] Baldemar Marc WBC 5.2 103/ul Normal 4.0-11.0 [facility] Comment on above: Performed By: #### C BC #### [facility] [address] [place] [address] Dr. Baldemar Marc FREE T3on 02-11-2023 FREE T3 2.49 pg/mlL Normal 2.18-3.98 [facility] Comment on above: Performed By: #### L IPID, LIVER, TSH, FT3, BMP #### [facility] [address] [address] [address] Baldemar Marc FREE T4on 02-11-2023 Free T4 [Mass/Vol] 1.30 ng/dL Normal 0.76-1.46 [facility] Comment on above: Performed By: #### F T4, VITAD, PSASC #### [facility] [address] [place] [address] Dr. Baldemar Marc LIPID PROFILEon 02-11-2023 CHOL-HDL RATIO NORM SEE BELOW Normal [facility] Comment on above: Result Comment: 3.3 - 4.4 LOW RISK 4.4 - 7.1 AVERAGE RISK 7.1 - 11.0 MODERATE RISK >11.0 HIGH RISK Performed By: #### L IPID, LIVER, TSH, FT3, BMP #### [facility] [address] [place] [address] Dr. Baldemar Marc Cholesterol [Mass/Vol] 111 mg/dL Normal <=200 [facility] Comment on above: Performed By: #### L IPID, LIVER, TSH, FT3, BMP #### [facility] [address] [address] [address] Baldemar Marc Cholesterol in HDL [Mass/Vol] 49 mg/dL Normal 40-60 [facility] Comment on above: Performed By: #### L IPID, LIVER, TSH, FT3, BMP #### [facility] [address] [address] [address] Baldemar Marc Cholesterol in LDL [Mass/Vol] 49.0 mg/dL Normal [facility] Comment on above: Performed By: #### L IPID, LIVER, TSH, FT3, BMP #### [facility] [address] [address] [address] Baldemar Marc Cholesterol.total/C holesterol in HDL [Mass ratio] 2.3 {ratio} Normal [facility] Comment on above: Performed By: #### L IPID, LIVER, TSH, FT3, BMP #### [facility] [address] [address] [address] Baldemar Marc HDL NORMAL > or = 60 mg/dl - LO W CARDIOVASCULAR RISK <40 mg/dl - HIGH CARDIOVASCULAR RISK Normal [facility] Comment on above: Performed By: #### L IPID, LIVER, TSH, FT3, BMP #### [facility] [address] [address] [address] Baldemar Marc LDL CALC NORMAL SEE BELOW Normal [facility] Comment on above: Result Comment: <100 mg/dl OPTIMAL 100 - 129 mg/dl NEAR OR ABOVE OPTIMAL 130 - 159 mg/dl BORDERLINE HIGH 160 - 189 mg/dl HIGH >190 mg/dl VERY HIGH Performed By: #### L IPID, LIVER, TSH, FT3, BMP #### [facility] [address] [address] [address] Baldemar Marc Triglyceride [Mass/Vol] 65 mg/dL Normal <=150 [facility] Comment on above: Performed By: #### L IPID, LIVER, TSH, FT3, BMP #### [facility] [address] [address] [address] Baldemar Marc VLDL CALC 13.0 mg/dL Normal [facility] Comment on above: Performed By: #### L IPID, LIVER, TSH, FT3, BMP #### [facility] [address] [place] [address] Dr. Baldemar Marc LIVER PROFILEon 02-11-2023 Albumin [Mass/Vol] 3.9 g/dL Normal 3.4-5.0 [facility] Comment on above: Performed By: #### L IPID, LIVER, TSH, FT3, BMP #### [facility] [address] [place] [address] Dr. Baldemar Marc Albumin/Globulin [Mass ratio] 1.2 {ratio} Normal [facility] Comment on above: Performed By: #### L IPID, LIVER, TSH, FT3, BMP #### [facility] [address] [place] [address] Dr. Baldemar Marc ALP [Catalytic activity/Vol] 69 U/L Normal 46-116 [facility] Comment on above: Performed By: #### L IPID, LIVER, TSH, FT3, BMP #### [facility] [address] [place] [address] Dr. Baldemar Marc ALT [Catalytic activity/Vol] 22 U/L Normal 16-63 [facility] Comment on above: Performed By: #### L IPID, LIVER, TSH, FT3, BMP #### [facility] [address] [place] [address] Dr. Baldemar Marc AST [Catalytic activity/Vol] 17 U/L Normal 15-37 [facility] Comment on above: Performed By: #### L IPID, LIVER, TSH, FT3, BMP #### [facility] [address] [place] [address] Dr. Baldemar Marc BILI, CONJUGATED 0.2 mg/dL Normal 0.0-0.2 [facility] Comment on above: Performed By: #### L IPID, LIVER, TSH, FT3, BMP #### [facility] [address] [place] [address] Dr. Baldemar Marc Bilirubin [Mass/Vol] 0.6 mg/dL Normal 0.2-1.0 [facility] Comment on above: Performed By: #### L IPID, LIVER, TSH, FT3, BMP #### [facility] [address] [place] [address] Dr. Baldemar Marc Globulin (S) [Mass/Vol] 3.2 g/dL Normal [facility] Comment on above: Performed By: #### L IPID, LIVER, TSH, FT3, BMP #### [facility] [address] [place] [address] Dr. Baldemar Marc Protein [Mass/Vol] 7.1 g/dL Normal 6.4-8.2 [facility] Comment on above: Performed By: #### L IPID, LIVER, TSH, FT3, BMP #### [facility] [address] [place] [address] Dr. Baldemar Marc PROF CHEM 8 (BAS METB)on Anion gap [Moles/Vol] 11.4 mmol/L Normal [facility] Comment on above: Performed By: #### L IPID, LIVER, TSH, FT3, BMP #### [facility] [address] [place] [address] Dr. Baldemar Marc Calcium [Mass/Vol] 9.4 mg/dL Normal 8.5-10.1 [facility] Comment on above: Performed By: #### L IPID, LIVER, TSH, FT3, BMP #### [facility] [address] [place] [address] Dr. Baldemar Marc Chloride [Moles/Vol] 102 mmol/L Normal 98-107 [facility] Comment on above: Performed By: #### L IPID, LIVER, TSH, FT3, BMP #### [facility] [address] [place] [address] Dr. Baldemar Marc CO2 [Moles/Vol] 30.8 mmol/L Normal 21.0-32.0 [facility] Comment on above: Performed By: #### L IPID, LIVER, TSH, FT3, BMP #### [facility] [address] [place] [address] Dr. Baldemar Marc Creatinine [Mass/Vol] 1.13 mg/dL Normal 0.70-1.30 [facility] Comment on above: Performed By: #### L IPID, LIVER, TSH, FT3, BMP #### [facility] [address] [address] [address] Baldemar Marc EGFR-AF DJIBOUTIAN >60 Normal >=60 [facility] Comment on above: Performed By: #### L IPID, LIVER, TSH, FT3, BMP #### [facility] [address] [address] [address] Baldemar Marc EGFR-NON AF DJIBOUTIAN >60 Normal >=60 [facility] Comment on above: Performed By: #### L IPID, LIVER, TSH, FT3, BMP #### [facility] [address] [place] [address] Dr. Baldemar Marc Glucose [Mass/Vol] 104 mg/dL Normal 74-106 [facility] Comment on above: Performed By: #### L IPID, LIVER, TSH, FT3, BMP #### [facility] [address] [place] [address] Dr. Baldemar Marc Potassium [Moles/Vol] 4.2 mmol/L Normal 3.5-5.1 [facility] Comment on above: Performed By: #### L IPID, LIVER, TSH, FT3, BMP #### [facility] [address] [address] [address] Baldemar Marc Sodium [Moles/Vol] 140 mmol/L Normal 136-145 [facility] Comment on above: Performed By: #### L IPID, LIVER, TSH, FT3, BMP #### [facility] [address] [place] [address] Dr. Baldemar Marc Urea nitrogen [Mass/Vol] 17.0 mg/dL Normal 7.0-18.0 [facility] Comment on above: Performed By: #### L IPID, LIVER, TSH, FT3, BMP #### [facility] [address] [place] [address] Dr. Baldemar Marc Urea nitrogen/Creatinine [Mass ratio] 15.0 mg/mg Normal [facility] Comment on above: Performed By: #### L IPID, LIVER, TSH, FT3, BMP #### [facility] [address] [place], [place] [address] Dr. Baldemar Marc TSHon 02-11-2023 TSH 0.571 uIU/mL Normal 0.358-3.740 [facility] Comment on above: Performed By: #### L IPID, LIVER, TSH, FT3, BMP #### [facility] [address] [place], [place] [address] Dr. Baldemar Marc VITAMIN D 25 OHon 02-11-2023 VIT D 25-OH 46.2 ng/mL Normal [facility] Comment on above: Performed By: #### F T4, VITAD, PSASC #### [facility] [id number] Baldemar Marc VIT D RANGES SEE BELOW Normal [facility] Comment on above: Result Comment: <20 ng/mL Vit D deficient 20 - <30 ng/mL Vit D insufficient 30 - 100 ng/mL Vit D sufficient >100 ng/mL Potential Toxicity Performed By: #### F T4, VITAD, PSASC #### [facility] [address] [place], [place] [address] Dr. Baldemar Marc Encounters Encounter Date Encounter Type Care Provider Facility Start: 02-08-2024 End: 02-08-2024 ambulatory NICHOLAS HARRIS Not Available Start: 01-17-2024 End: 01-17-2024 ambulatory JC RICHARDSON Not Available Start: 12-24-2023 Chart abstracting Jc adam MD Work Phone: [facility] Start: 12-02-2023 End: 12-02-2023 ambulatory NICHOLAS HARRIS Not Available Start: 11-03-2023 End: 11-03-2023 ambulatory JC RICHARDSON Not Available Start: 11-01-2023 End: 11-01-2023 ambulatory PJ ARORA Not Available Start: 02-11-2023 End: 02-12-[address] NICHOLAS HARRIS Facility:[facility] Procedures Date Procedure Procedure Detail Performing Clinician Start: 03-30-[address] NICHOLAS CHILEL Comment on above: Performed By: #### F T4, VITAD, PSASC #### [facility] [address] [place] [address] Dr. Baldemar Marc Plan of Treatment Date Care Activity Detail Author Start: 02-08-2024 End: 02-08-2024 Patient encounter procedure 02/08/2024 10:45 AM EDT Office Visit [facility] [address] [place] [address] Nicholas Harris MD [address] [place] [address] [facility] Start: 01-17-2024 End: 01-17-2024 Patient encounter procedure 01/17/2024 9:50 AM EST Office Visit [facility] [address] [place] [address] Jc Richardson MD [address] [place] [address] [facility] Start: 12-28-2023 End: 12-28-2023 Patient encounter procedure 12/28/2023 10:30 AM EST Procedure Visit [facility] Jc Richardson MD [address] [place] [address] [facility] Start: 1945 Medicare Annual Well ness (AWV) Medicare Annual Wellness (AWV) [facility] Immunizations Immunization Date Immunization Notes Care Provider Fa cili 10-27-2018 pneumococcal polysaccharide vaccine, 23 valent Jc Richardson MD Work Phone: [facility] 11-12-2017 pneumococcal polysaccharide vaccine, 23 valmarcia Richardson MD Work Phone: [facility] 10-18-2017 pneumococcal conjuga te vaccine, 13 valent Jc Richardson MD Work Phone: [facility] 05-23-2014 zoster vaccine, live Jc Richardson MD Work Phone: [facility] Payers Date Payer Category Payer Unknown AARP AARP [id number] [phone]-Present [address] [place] [address] [id number] 2011 Medicare MEDICARE MEDICAR E PART B [id number] 2011-Present [address] [address] [place] [address] Medicare [id number] 1959 Medicare [id number] 1959 Unknown [id number] 1946 Unknown [id number] 1946 Unknown [id number] 1946 Unknown [id number] 1946 Unknown [id number] 1946 Unknown [id number] 1946 Unknown [id number] Social History Date Type Detail Facility Start: 09-16-2023 Tobacco smoking status NHIS Never sm oked tobacco [facility] Start: 09-16-2023 Tobacco use and exposure Smoke less tobacco non-user [facility] Start: 12-02-2023 Alcohol intake Current drinke r of alcohol (finding) [facility] Start: 12-02-2023 End: 12-04-2023 History of [...] content) DATE CREATED AUTHOR 02/20/2023 [facility] DATE CREATED AUTHOR 'S ORGANIZ ATION 02/09/2024 [facility] EPIC Care Teams (unrecognized sec tion and content) 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 [email or web address] provides no warranty or guarantee of the accuracy or completeness of information in this document.
[2024-07-31 11:10] LABS: Basophils Percent Auto 0.8 % (0.2-2.0); Eosinophils Absolute Auto 0.1 10^3/uL (0.0-0.7); Eosinophils Percent Auto 1.6 % (0.9-7.0); Hematocrit 38.8 % (42.0-54.0); Hemoglobin 12.6 g/dL (14.0-18.0); Immature Granulocytes Abs Auto 0.02 10^3/uL (0.00-0.03); Immature Granulocytes Pct Auto 0.4 % (0.0-0.5); Lymphocytes Absolute Auto 1.5 10^3/uL (1.2-3.8); Lymphocytes Percent Auto 29.7 % (20.5-60.0); Mean Corpuscular HGB Conc 32.5 g/dL (29.9-35.2); Mean Corpuscular Hemoglobin 32.1 pg (25.9-34.0); Mean Corpuscular Volume 98.7 fL (80.0-94.0); Mean Platelet Volume 9.8 fL (9.5-13.5); Monocytes Absolute Auto 0.4 10^3/uL (0.3-0.8); Monocytes Percent Auto 8.3 % (1.7-12.0); Neutrophils Absolute Auto 3.1 10^3/uL (1.4-6.5); Neutrophils Percent Auto 59.2 % (43.0-75.0); Platelet Count 150 10^3/uL (150-450); Red Blood Count 3.93 10^6/uL (4.70-6.10); Red Cell Distribution Width 13.3 % (11.0-15.0); White Blood Count 5.2 10^3/uL (4.0-11.0)
[2024-07-31 12:20] LABS: Alanine Aminotransferase 28 U/L (16-63); Albumin Globulin Ratio 1.2; Albumin Level 3.7 g/dL (3.4-5.0); Alkaline Phosphatase 83 U/L (46-116); Anion Gap 11.6; Aspartate Amino Transferase 18 U/L (15-37); Bilirubin Direct 0.2 mg/dL (0.0-0.2); Bilirubin Total 0.6 mg/dL (0.2-1.0); Calcium 9.1 mg/dL (8.5-10.1); Carbon Dioxide 28.7 mmol/L (21.0-32.0); Chloride 104 mmol/L (98-107); Cholesterol 99 mg/dL (<=200); Estimated GFR (African America >60 (>=60); Estimated GFR (Non-African Ame 55 (>=60); Glucose 96 mg/dL (74-106); HDL Cholesterol 49 mg/dL (40-60); LDL Cholesterol Calculated 39.4 mg/dL; Potassium 4.3 mmol/L (3.5-5.1); Sodium 140 mmol/L (136-145); Thyroid Stimulating Hormone 0.254 uIU/mL (0.358-3.740); Total Protein 6.7 g/dL (6.4-8.2); Triglycerides 53 mg/dL (<=150); VLDL CHOLESTEROL 10.6 mg/dL
[2024-07-31 12:23] LABS: Prostate Specific Antigen Scrn 0.19 ng/mL (<=4.00)
[2024-08-01 04:08] LABS: Triiodothyronine (T3), Free 2.6 pg/mL (2.0-4.4)
== END 2024-07-31 10:35 | disposition home or self-care (01) ==
LOC: LAB 10:38
PROVIDERS: PCP Family Medicine; Visit Provider Family Medicine
DX: E78.5 Hyperlipidemia, unspecified (principal); N18.31 Chronic kidney disease, stage 3a; Z79.899 Other long term (current) drug therapy; Z12.5 Encounter for screening for malignant neoplasm of prostate; E03.9 Hypothyroidism, unspecified
CPT/HCPCS: 36415; 80048; 80061; 80076; 84439; 84443; 84481; 85025; G0103

== ENCOUNTER 2025-08-06 10:39 | Outpatient (OUT) | payer MEDICARE, SELFPAY ==
--- OUTSIDE RECORDS SUMMARY | 2025-08-06 10:47 | XMS_ITS | CCD ---
Author Organization [facility] Care Team Providers Care Customer Solutions Architect Name Role Phone DR JORI HARRIS Consulting Unavailable STEVEN, DR JORI Roach Attending Unavailable STEVEN, DR JORI Roach Admitting Unavailable STEVEN, DR JORI Roach Primary Care Unavailable Jori Harris MD Primary Care Provider Jori Harris MD Primary Care Provider [phone] JORI HARRIS Attending Unavailable LUANNE RICHARDSON Attending Unavailable STEVEN, JORI Attending Unavailable Jori Harris MD Unavailable Jori Harris MD Primary Care Provider [phone] Jori Harris MD Attending Provider Medications Current Medications Medication Drug Class(es) Dates Sig (Normalized) Sig (Original) allopurinol 100 mg oral tablet (8 sources) Xanthine Oxidase Inhibitor Start: 08-03-2025 take 1 tablet by mouth twice daily Allopurinol 100 mg tablet Active 100 MG PO Twice daily August 03, 2025 12:00am Complies with drug therapy Start: 12-26-2024 take 1 tablet by maria del carmen th twice daily allopurinol (Zyloprim) 100 MG tablet Indications: Chronic gouty arthritis TAKE 1 TABLET BY MOUTH TWICE A DAY 180 tablet 3 12/26/2024 Active Start: 03-27-2024 take 1 tablet by maria del carmen th twice daily allopurinol (Zyloprim) 100 MG tablet Indications: Chronic gouty arthritis TAKE 1 TABLET BY MOUTH TWICE A DAY 180 tablet 3 03/27/2024 Active take 1 tablet by maria del carmen th every twelve hours allopurinol (Zyloprim) 100 MG tablet Take 100 mg by mouth every 12 (twelve) hours. 0 Active cholecalciferol 0.025 mg oral capsule (12 sources) Vitamin D Start: 08-03-2025 take 1 capsule by mouth once daily Cholecalciferol (Vitamin D3) 25 mcg (1,000 unit) capsule Active 25 MCG PO Daily August 03, 2025 12:00am Complies with drug therapy Start: 01-30-2025 take 1 tablet by maria del carmen th once daily D3-1000 25 MCG (1000 UT) tablet Indications: Vitamin D deficiency TAKE 1 TABLET BY MOUTH EVERY DAY 90 tablet 3 01/30/2025 Active Start: 02-07-2024 take 1 tablet by maria del carmen th once daily cholecalciferol 25 MCG tablet Indications: Vitamin D deficiency TAKE 1 TABLET BY MOUTH EVERY DAY 90 tablet 3 02/07/2024 Active take 1 capsule by mo uth in the morning cholecalciferol (Vitamin D-3) 25 MCG (1000 UT) capsule Take 1 capsule by mouth in the morning. Active doxazosin 8 mg oral tablet (9 sources) alpha-Adrenergic Deng Start: 08-03-2025 take 1 tablet by mouth once daily Doxazosin 8 mg tablet Active 8 MG PO Daily August 03, 2025 12:00am Complies with drug therapy Start: 07-18-2024 End: 07-11-2025 take 1 tablet by mouth once daily doxazosin (Cardura) 8 MG tablet Indications: Essential (primary) hypertension , Benign essential hypertension TAKE 1 TABLET BY MOUTH EVERY DAY 90 tablet 3 07/11/2025 Active take 1 tablet by maria del carmen th once daily doxazosin (Cardura) 8 MG tablet Take 8 mg by mouth 1 (one) time each day at the same time. 0 Active fluticasone propionate 0.05 mg/actuat metered dose nasal spray (8 sources) Corticosteroid Start: 08-03-2025 take 1 spray(s) nasal route once daily Fluticasone Propionate 50 mcg/actuation spray,suspension Active 2 SPRAY INTRANASAL Daily August 03, 2025 12:00am administer into each nostril Complies with drug therapy Start: 02-07-2025 End: 02-07-2026 take 2 spray(s) nasal route once daily fluticasone (Flonase) 50 MCG/ACT nasal spray Indications: ETD (Eustachian tube dysfunction), right Administer 2 sprays into each nostril Daily Shake gently. Before first use, prime pump. After use, clean tip and replace cap. 48 g 3 02/07/2025 02/07/2026 Active Start: 09-20-2023 fluticasone (F lonase) 50 MCG/ACT nasal spray Indications: OME (otitis media with effusion), right 2 sprays on right side BID. Shake gently. Before first use, prime pump. After use, clean tip and replace cap. 16 g 11 09/20/2023 Active hydroCHLOROthiazide 25 mg / triamterene 37.5 mg oral capsule (13 sources) Potassium-sparing Diuretic, Thiazide Diuretic Start: 08-03-2025 take 1 capsule by mouth once daily Triamterene-Hydrochlorothiazid 37.5-25 mg capsule Active 1 CAP PO Daily August 03, 2025 12:00am Complies with drug therapy Start: 07-20-2024 take 1 capsule by mouth once daily triamterene-hydroCHLOROthiazide (Dyazide ) 37.5-25 MG capsule Indications: Localized edema , Edema TAKE 1 CAPSULE BY MOUTH EVERY DAY 90 capsule 3 07/20/2024 Active take 1 tablet by maria del carmen th once daily triamterene-hydrochlorothiazide (Maxzide -25) 37.5-25 MG tablet Take 1 tablet by mouth 1 (one) time each day at the same time. Active levothyroxine sodium 0.112 mg oral tablet (9 sources) l-Thyroxine Start: 08-03-2025 take 1 tablet by mouth once daily Levothyroxine 112 mcg tablet Active 112 MCG PO Daily August 03, 2025 12:00am Complies with drug therapy Start: 07-18-2024 End: 07-11-2025 take 1 tablet by mouth once daily levothyroxine (Synthroid, Levoxyl) 112 MCG tablet Indications: Hypothyroidism, unspecified , Hypothyroidism TAKE 1 TABLET BY MOUTH EVERY DAY 90 tablet 3 07/11/2025 Active take 1 tablet by maria del carmen th once daily levothyroxine (Synthroid, Levoxyl) 112 MCG tablet Take 112 mcg by mouth 1 (one) time each day at the same time. 0 Active lisinopril 10 mg oral tablet (8 sources) Angiotensin Converting Enzyme Inhibitor Start: 08-03-2025 take 1 tablet by mouth once daily Lisinopril 10 mg tablet Active 10 MG PO Daily August 03, 2025 12:00am Complies with drug therapy Start: 12-26-2024 take 1 tablet by maria del carmen th once daily lisinopril 10 MG tablet Indications: Benign essential hypertension TAKE 1 TABLET BY MOUTH EVERY DAY 90 tablet 3 12/26/2024 Active Start: 03-27-2024 take 1 tablet by maria del carmen th once daily lisinopril 10 MG tablet Indications: Benign essential hypertension (CMS/HCC) TAKE 1 TABLET BY MOUTH EVERY DAY 90 tablet 3 03/27/2024 Active take 1 tablet by maria del carmen th once daily lisinopril 10 MG tablet Take 10 mg by mouth 1 (one) time each day at the same time. 0 Active simvastatin 20 mg oral tablet (8 sources) HMG-CoA Reductase Inhibitor Start: 08-03-2025 take 1 tablet by mouth once daily at bedtime Simvastatin 20 mg tablet Active 20 MG PO Daily at bedtime August 03, 2025 12:00am Complies with drug therapy Start: 11-02-2024 take 1 tablet by maria del carmen th once daily at bedtime simvastatin (Zocor) 20 MG tablet Indications: Dyslipidemia TAKE 1 TABLET BY MOUTH EVERYDAY AT BEDTIME 90 tablet 3 11/02/2024 Active Start: 10-28-2023 take 1 tablet by maria del carmen th once daily at bedtime simvastatin (Zocor) 20 MG tablet Indications: Dyslipidemia (CMS/HCC) TAKE 1 TABLET BY MOUTH EVERYDAY AT BEDTIME 90 tablet 3 10/28/2023 Active Problems Active Problems Problem Classification Problem Date Documented Da te Episodic/Chronic Acquired foot deformities (8 sources) Foot-drop; Translations: [Foot drop, unspecified foot] Onset: 09-16-2023 09-16-2023 Episodic Chronic kidney disease (12 sources) Chronic kidney disease stage 3A ; Translations: [Stage 3a chronic kidney disease (CKD)] Onset: 12-02-2023 12-02-2023 Chronic Disorders of lipid metabolism (17 sources) Hyperlipidemia, unspecified; Translations: [Dyslipidemia] Onset: 02-19-2023 Resolved: 12-02-2023 12-02-2023 Chronic Diverticulosis and diverticulitis (8 sources) Diverticular disease; Translations: [Diverticulosis of intestine, part unspecified, without perforation or abscess without bleeding] Onset: 09-16-2023 09-16-2023 Chronic Essential hypertension (15 sources) Essential (primary) hypertension; Translations: [Benign essential hypertension] Onset: 02-19-2023 12-02-2023 Chronic Gout and other crystal arthropathies (10 sources) Gout; Translations: [Gout, unspecified] Onset: 09-16-2023 09-16-2023 Chronic Joint disorders and dislocations; trauma-related (2 sources) Instability of joint of right knee; Translations: [Chronic instability of knee, right knee] 08-06-2025 Chronic Nutritional deficiencies (12 sources) Vitamin D deficiency, unspecified; Translations: [Vitamin D deficiency] Onset: 02-11-2023 Chronic Other aftercare (1 source) Other penitentiary (current) drug therapy; Translations: [OTH DETENTION CURRENT DRUG THERAPY] Onset: 02-19-2023 Episodic Other aftercare (5 sources) Patient encounter status; Translations: [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] Onset: 07-31-2024 07-31-2024 Episodic Other aftercare (5 sources) Long-term current use of drug therapy; Translations: [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] Onset: 07-31-2024 07-31-2024 Episodic Other connective tissue disease (6 sources) History of repair of hip joint; Translations: [Presence of left artificial hip joint] Onset: 09-16-2023 09-16-2023 Chronic Other non-traumatic joint disorders (1 source) Instability of joint of right knee Episodic Other non-traumatic joint disorders (1 source) Knee pain Episodic Other nutritional; endocrine; and metabolic disorders (7 sources) Body mass index 30+ - obesity; Translations: [Obesity, unspecified] Onset: 02-08-2024 07-31-2024 Chronic Other nutritional; endocrine; and metabolic disorders (2 sources) Obesity; Translations: [Obesity, unspecified] 08-03-2025 Chronic Other screening for suspected conditions (not mental disorders or infectious disease) (11 sources) Encounter for screening for malignant neoplasm of prostate; Translations: [Patient encounter status] Onset: 02-19-2023 07-31-2024 Episodic Residual codes; unclassified (9 sources) Bilateral lower limb edema; Translations: [Localized edema] Onset: 02-08-2024 07-31-2024 Episodic Thyroid disorders (15 sources) Hypothyroidism, unspecified; Translations: [Hypothyroidism] Onset: 02-19-2023 12-02-2023 Chronic Unclassified (1 source) M23.51 - Chronic instability of knee, right knee,M25.561 - Pain in right knee Past or Other Problems Problem Classification Problem Date Documented Date Episodic/Chronic Otitis media and related conditions (18 sources) Non-suppurative otitis media; Translations: [Unspecified nonsuppurative otitis media, unspecified ear] Onset: 09-16-2023 Resolved: 12-02-2023 12-02-2023 Episodic Superficial injury; contusion (6 sources) Contusion of right hip region; Translations: [Contusion of right hip, initial encounter] Onset: 09-16-2023 Resolved: 12-02-2023 12-02-2023 Episodic Viral infection (6 sources) Herpes zoster without complication; Translations: [Zoster without complications] Onset: 12-02-2023 Resolved: 02-08-2024 12-02-2023 Episodic Results Test Name Value Interpretation Reference Range Facility ALL CBC WITH AUTO DIFFon BASOPHILS ABSOLUTE AUTO 0.0 [facility] Basophils/100 WBC (Bld) 0.8 % 0.2 - 2.0 % [facility] Eosinophils/100 WBC (Bld) 1.6 % 0.9 - 7.0 % [facility] Erythrocyte distribution width (RBC) [Ratio] 13.3 % 11.0 - 15.0 % [facility] Hematocrit (Bld) [Volume fraction] 38.8 % Low 42.0 - 54.0 % [facility] Hem[facility] (Bld) [Mass/Vol] 12.6 g/dL Low 14.0 - 18.0 g/dL [facility] IMMATURE GRANULOCYTES ABS AUTO 0.02 [facility] Immature granulocytes/100 WBC (Bld) 0.4 % 0.0 - 0.5 % [facility] Interpretation and review of laboratory results Abnormal [facility] LYMPHOCYTES ABSOLUTE AUTO 1.5 [facility] Lymphocytes/100 WBC (Bld) 29.7 % 20.5 - 60.0 % [facility] MCH (RBC) [Entitic mass] 32.1 pg 25.9 - 34.0 pg [facility] MCHC (RBC) [Mass/Vol] 32.5 g/dL 29.9 - 35.2 g/dL [facility] MCV (RBC) [Entitic vol] 98.7 fL High 80.0 - 94.0 fL [facility] MONOCYTES ABSOLUTE AUTO 0.4 [facility] Monocytes/100 WBC (Bld) 8.3 % 1.7 - 12.0 % [facility] NEUTROPHILS ABSOLUTE AUTO 3.1 [facility] Neutrophils/100 WBC (Bld) 59.2 % 43.0 - 75.0 % [facility] Platelet mean volume (Bld) [Entitic vol] 9.8 fL 9.5 - 13.5 fL [facility] EO # 0.1 [facility] PLT 150 [facility] RBC 3.93 Low [facility] WBC 5.2 [facility] CBC AUTO DIFFon 02-11-2023 BASO # 0.1 103/ul Normal 0.0-0.1 [facility] Comment on above: Performed By: #### C BC #### [facility] [address] [address] [address] Baldemar Marc Basophils/100 WBC (Bld) 1.0 % Normal 0.2-2.0 [facility] Comment on above: Performed By: #### C BC #### [facility] [address] [address] [address] Baldemar Marc EO # 0.1 103/ul Normal 0.0-0.7 [facility] Comment on above: Performed By: #### C BC #### [facility] [address] [address] [address] Baldemar Marc Eosinophils/100 WBC (Bld) 1.4 % Normal 0.9-7.0 [facility] Comment on above: Performed By: #### C BC #### [facility] [address] [address] [address] Baldemar Marc Erythrocyte distribution width (RBC) [Ratio] 13.3 % Normal 11.0-15.0 [facility] Comment on above: Performed By: #### C BC #### [facility] [address] [address] [address] Baldemar Marc Hematocrit (Bld) [Volume fraction] 40.0 % Critically low 42.0-54.0 [facility] Comment on above: Performed By: #### C BC #### [facility] [address] [place] [address] Dr. Baldemar Marc Hemoglobin (Bld) [Mass/Vol] 13.5 g/dL Critically low 14.0-18.0 [facility] Comment on above: Performed By: #### C BC #### [facility] [address] [place] [address] Dr. Baldemar Marc IG # 0.01 10e3/ul Normal 0.00-0.03 [facility] Comment on above: Performed By: #### C BC #### [facility] [address] [place] [address] Dr. Baldemar Marc IG % 0.2 % Normal 0.0-0.5 [facility] Comment on above: Performed By: #### C BC #### [facility] [address] [place] [address] Dr. Baldemar Marc LYMPH # 1.5 103/ul Normal 1.2-3.8 [facility] Comment on above: Performed By: #### C BC #### [facility] [address] [place] [address] Dr. Baldemar Marc Lymphocytes/100 WBC (Bld) 29.7 % Normal 20.5-60.0 [facility] Comment on above: Performed By: #### C BC #### [facility] [address] [place] [address] Dr. Baldemar Marc MANUAL DIFF REQ NO Normal [facility] Comment on above: Performed By: #### C BC #### [facility] [address] [place] [address] Dr. Baldemar Marc MCH (RBC) [Entitic mass] 32.5 pg Normal 25.9-34.0 [facility] Comment on above: Performed By: #### C BC #### [facility] [address] [place] [address] Dr. Baldemar Marc MCHC (RBC) [Mass/Vol] 33.8 g/dL Normal 29.9-35.2 [facility] Comment on above: Performed By: #### C BC #### [facility] [address] [address] [address] Baldemar Marc MCV (RBC) [Entitic vol] 96.2 fL Critically high 80.0-94.0 [facility] Comment on above: Performed By: #### C BC #### [facility] [address] [place] [address] Dr. Baldemar Marc MONO # 0.4 103/ul Normal 0.3-0.8 [facility] Comment on above: Performed By: #### C BC #### [facility] [address] [place] [address] Dr. Baldemar Marc Monocytes/100 WBC (Bld) 8.5 % Normal 1.7-12.0 [facility] Comment on above: Performed By: #### C BC #### [facility] [address] [place] [address] Dr. Baldemar Marc NEUT # 3.1 103/ul Normal 1.4-6.5 [facility] Comment on above: Performed By: #### C BC #### [facility] [address] [place] [address] Dr. Baldemar Marc Neutrophils/100 WBC (Bld) 59.2 % Normal 43.0-75.0 [facility] Comment on above: Performed By: #### C BC #### [facility] [address] [place] [address] Dr. Baldemar Marc Platelet mean volume (Bld) [Entitic vol] 10.1 fL Normal 9.5-13.5 [facility] Comment on above: Performed By: #### C BC #### [facility] [address] [place] [address] Dr. Baldemar Marc PLT 147 103/ul Critically low 150-450 [facility] Comment on above: Performed By: #### C BC #### [facility] [address] [place], [place] [id number] Dr. Baldemar Marc RBC 4.16 106/ul Critically low 4.70-6.10 [facility] Comment on above: Performed By: #### C BC #### [facility] [address] [place] [address] Dr. Baldemar Marc WBC 5.2 103/ul Normal 4.0-11.0 [facility] Comment on above: Performed By: #### C BC #### [facility] [address] [place] [address] Dr. Baldemar Marc FREE T3on 02-11-2023 FREE T3 2.49 pg/mlL Normal 2.18-3.98 [facility] Comment on above: Performed By: #### L IPID, LIVER, TSH, FT3, BMP #### [facility] [address] [place] [address] Dr. Badlemar Marc FREE T4on 02-11-2023 Free T4 [Mass/Vol] 1.30 ng/dL Normal 0.76-1.46 [facility] Comment on above: Performed By: #### F T4, VITAD, PSASC #### [facility] [address] [place] [address] Dr. Baldemar Marc LIPID PROFILEon 02-11-2023 CHOL-HDL RATIO NORM SEE BELOW Normal [facility] Comment on above: Result Comment: 3.3 - 4.4 LOW RISK 4.4 - 7.1 AVERAGE RISK 7.1 - 11.0 MODERATE RISK >11.0 HIGH RISK Performed By: #### L IPID, LIVER, TSH, FT3, BMP #### [facility] [address] [place] [address] Dr. Baldemar Marc Cholesterol [Mass/Vol] 111 mg/dL Normal <=200 [facility] Comment on above: Performed By: #### L IPID, LIVER, TSH, FT3, BMP #### [facility] [address] [place] [address] Dr. Baldemar Marc Cholesterol in HDL [Mass/Vol] 49 mg/dL Normal 40-60 [facility] Comment on above: Performed By: #### L IPID, LIVER, TSH, FT3, BMP #### [facility] [address] [place] [address] Dr. Baldemar Marc Cholesterol in LDL [Mass/Vol] 49.0 mg/dL Normal [facility] Comment on above: Performed By: #### L IPID, LIVER, TSH, FT3, BMP #### [facility] [address] [address] [address] Baldemar Marc Cholesterol.total/Ch olesterol in HDL [Mass ratio] 2.3 {ratio} Normal [facility] Comment on above: Performed By: #### L IPID, LIVER, TSH, FT3, BMP #### [facility] [address] [address] [address] Baldemar Marc HDL NORMAL > or = 60 mg/dl - LOW CARDIOVASCULAR RISK <40 mg/dl - HIGH CARDIOVASCULAR RISK Normal [facility] Comment on above: Performed By: #### L IPID, LIVER, TSH, FT3, BMP #### [facility] [address] [address] [address] Baldemar Marc LDL CALC NORMAL SEE BELOW Normal [facility] Comment on above: Result Comment: <100 mg/dl OPTIMAL 100 - 129 mg/dl NEAR OR ABOVE OPTIMAL 130 - 159 mg/dl BORDERLINE HIGH 160 - 189 mg/dl HIGH >190 mg/dl VERY HIGH Performed By: #### L IPID, LIVER, TSH, FT3, BMP #### [facility] [address] [address] [address] Baldemar Marc Triglyceride [Mass/Vol] 65 mg/dL Normal <=150 [facility] Comment on above: Performed By: #### L IPID, LIVER, TSH, FT3, BMP #### [facility] [address] [address] [address] Baldemar Marc VLDL CALC 13.0 mg/dL Normal [facility] Comment on above: Performed By: #### L IPID, LIVER, TSH, FT3, BMP #### [facility] [address] [address] [address] Baldemar Marc LIVER PROFILEon 02-11-2023 Albumin [Mass/Vol] 3.9 g/dL Normal 3.4-5.0 [facility] Comment on above: Performed By: #### L IPID, LIVER, TSH, FT3, BMP #### [facility] [address] [address] [address] Baldemar Marc Albumin/Globulin [Mass ratio] 1.2 {ratio} Normal [facility] Comment on above: Performed By: #### L IPID, LIVER, TSH, FT3, BMP #### [facility] [address] [place] [address] Dr. Baldemar Marc ALP [Catalytic activity/Vol] 69 U/L Normal 46-116 [facility] Comment on above: Performed By: #### L IPID, LIVER, TSH, FT3, BMP #### [facility] [address] [place] [address] Dr. Baldemar Marc ALT [Catalytic activity/Vol] 22 U/L Normal 16-63 [facility] Comment on above: Performed By: #### L IPID, LIVER, TSH, FT3, BMP #### [facility] [address] [place] [address] Dr. Baldemar Marc AST [Catalytic activity/Vol] 17 U/L Normal 15-37 [facility] Comment on above: Performed By: #### L IPID, LIVER, TSH, FT3, BMP #### [facility] [address] [place] [address] Dr. Baldemar Marc BILI, CONJUGATED 0.2 mg/dL Normal 0.0-0.2 [facility] Comment on above: Performed By: #### L IPID, LIVER, TSH, FT3, BMP #### [facility] [address] [place] [address] Dr. Baldemar Marc Bilirubin [Mass/Vol] 0.6 mg/dL Normal 0.2-1.0 [facility] Comment on above: Performed By: #### L IPID, LIVER, TSH, FT3, BMP #### [facility] [address] [place] [address] Dr. Baldemar Marc Globulin (S) [Mass/Vol] 3.2 g/dL Normal [facility] Comment on above: Performed By: #### L IPID, LIVER, TSH, FT3, BMP #### [facility] [address] [place] [address] Dr. Baldemar Marc Protein [Mass/Vol] 7.1 g/dL Normal 6.4-8.2 [facility] Comment on above: Performed By: #### L IPID, LIVER, TSH, FT3, BMP #### [facility] [address] [address] [address] Baldemar Marc PROF CHEM 8 (BAS METB)on Anion gap [Moles/Vol] 11.4 mmol/L Normal [facility] Comment on above: Performed By: #### L IPID, LIVER, TSH, FT3, BMP #### [facility] [address] [address] [address] Baldemar Marc Calcium [Mass/Vol] 9.4 mg/dL Normal 8.5-10.1 [facility] Comment on above: Performed By: #### L IPID, LIVER, TSH, FT3, BMP #### [facility] [address] [address] [address] Baldemar Marc Chloride [Moles/Vol] 102 mmol/L Normal 98-107 [facility] Comment on above: Performed By: #### L IPID, LIVER, TSH, FT3, BMP #### [facility] [address] [address] [address] Baldemar Marc CO2 [Moles/Vol] 30.8 mmol/L Normal 21.0-32.0 [facility] Comment on above: Performed By: #### L IPID, LIVER, TSH, FT3, BMP #### [facility] [address] [address] [address] Baldemar Marc Creatinine [Mass/Vol] 1.13 mg/dL Normal 0.70-1.30 [facility] Comment on above: Performed By: #### L IPID, LIVER, TSH, FT3, BMP #### [facility] [address] [address] [address] Baldemar Marc EGFR-AF PUERTO RICAN >60 Normal >=60 [facility] Comment on above: Performed By: #### L IPID, LIVER, TSH, FT3, BMP #### [facility] [address] [address] [address] Baldemar Marc EGFR-NON AF PUERTO RICAN >60 Normal >=60 [facility] Comment on above: Performed By: #### L IPID, LIVER, TSH, FT3, BMP #### [facility] [address] [place] [address] Dr. Baldemar Marc Glucose [Mass/Vol] 104 mg/dL Normal 74-106 [facility] Comment on above: Performed By: #### L IPID, LIVER, TSH, FT3, BMP #### [facility] [address] [place] [address] Dr. Baldemar Marc Potassium [Moles/Vol] 4.2 mmol/L Normal 3.5-5.1 [facility] Comment on above: Performed By: #### L IPID, LIVER, TSH, FT3, BMP #### [facility] [address] [place] [address] Dr. Baldemar Marc Sodium [Moles/Vol] 140 mmol/L Normal 136-145 [facility] Comment on above: Performed By: #### L IPID, LIVER, TSH, FT3, BMP #### [facility] [address] [place] [address] Dr. Baldemar Marc Urea nitrogen [Mass/Vol] 17.0 mg/dL Normal 7.0-18.0 [facility] Comment on above: Performed By: #### L IPID, LIVER, TSH, FT3, BMP #### [facility] [address] [place] [address] Dr. Baldemar Marc Urea nitrogen/Creatinine [Mass ratio] 15.0 mg/mg Normal [facility] Comment on above: Performed By: #### L IPID, LIVER, TSH, FT3, BMP #### [facility] [address] [place] [address] Dr. Baldemar Marc TSHon 02-11-2023 TSH 0.571 uIU/mL Normal 0.358-3.740 [facility] Comment on above: Performed By: #### L IPID, LIVER, TSH, FT3, BMP #### [facility] [address] [place] [address] Dr. Baldemar Marc VITAMIN D 25 OHon 03-30-2023 VIT D 25-OH 46.2 ng/mL Normal [facility] Comment on above: Performed By: #### F T4, VITAD, PSASC #### [facility] [address], [place] [address] Dr. Baldemar Marc VIT D RANGES SEE BELOW Normal [facility] Comment on above: Result Comment: <20 ng/mL Vit D deficient 20 - <30 ng/mL Vit D insufficient 30 - 100 ng/mL Vit D sufficient >100 ng/mL Potential Toxicity Performed By: #### F T4, VITAD, PSASC #### [facility] [address], [place] [address] Dr. Baldemar Marc Vital Signs Date Time Vital Sign Value Performing Clinician Facility 08-06-2025 09:05-0400 Diastolic blood pressure 56 mm[Hg] Jori Harris MD Work Phone: [facility] 08-06-2025 09:05-0400 Systolic blood pressure 96 mm[Hg] Jori Harris MD Work Phone: [facility] 08-06-2025 09:04-0400 Body height 177.8 cm Jori Harris MD Work Phone: [facility] 08-06-2025 09:04-0400 Body mass index (BMI) [Ratio] 30.7 kg/m2 Jori Harris MD Work Phone: [facility] 08-06-2025 09:04-0400 Body temperature 98.5 [degF] Jori Harris MD Work Phone: [facility] 08-06-2025 09:04-0400 Body weight 97.12 kg Jori Harris MD Work Phone: [facility] 08-06-2025 09:04-0400 Heart rate 100 /min Jori Harris MD Work Phone: [facility] 08-06-2025 09:04-0400 Respiratory rate 18 /min Jori Harris MD Work Phone: [facility] 07-31-2024 09:39-0400 Body mass index (BMI) [Ratio] 32.14 kg/m2 Jori Harris MD Work Phone: [facility] 07-31-2024 09:39-0400 Body temperature 97.3 [degF] Jori Harris MD Work Phone: [facility] 07-31-2024 09:39-0400 Body weight 101.61 kg Jori Harris MD Work Phone: [facility] 07-31-2024 09:39-0400 Diastolic blood pressure 72 mm[Hg] Jori Harris MD Work Phone: [facility] 07-31-2024 09:39-0400 Heart rate 63 /min Jori Harris MD Work Phone: [facility] 07-31-2024 09:39-0400 Respiratory rate 17 /min Jori Harris MD Work Phone: [facility] 07-31-2024 09:39-0400 SaO2% (BldA) [Mass fraction] 98 % Jori Harris MD Work Phone: [facility] 07-31-2024 09:39-0400 Systolic blood pressure 118 mm[Hg] Jori Harris MD Work Phone: [facility] Healthcare Encounters Encounter Date Encounter Type Care Provider Facility Start: 08-06-2025 End: 08-06-2025 ambulatory Jori Harris MD Work Phone: [facility] Work Phone: Start: 08-06-2025 End: 08-06-2025 Patient encounter procedure Jori Harris MD -[facility] [place] Work Phone: Start: 07-11-2025 End: 07-11-2025 Refill Jori Harris MD Work Phone: [facility] Comment on above: Essential (primary) hypertension ; Benign essential hypertension ; Hypothyroidism, unspecified ; Hypothyroidism Start: 02-07-2025 End: 03-26-2025 ambulatory LUANNE Franklin TIMMIS Not Available Start: 01-29-2025 End: 01-29-2025 ambulatory JORI HARRIS Not Available Start: 07-31-2024 End: 07-31-2024 Bamboo flowsheet Jori Harris MD Work Phone: [facility] Start: 07-31-2024 End: 07-31-2024 Bamboo flowsheet Jori Harris MD Work Phone: [facility] Start: 07-31-2024 End: 07-31-2024 Clinisync Result Encounter Jori Harris MD Work Phone: [facility] Unsolicited Start: 07-31-2024 End: 07-31-2024 Office outpatient visit 25 minutes Jori Harris MD Work Phone: [facility] Comment on above: Benign essential hyp ertension (CMS/HCC) (Primary Dx); Chronic gouty arthritis; Bilateral edema of lower extremity; Adult hypothyroidism (CMS/HCC); Stage 3a chronic kidney disease (CKD) (CMS/HCC); Dyslipidemia (CMS/HCC); Obesity (BMI 30-39.9); Screening PSA (prostate specific antigen); Encounter for long-term current use of medication Start: 07-31-2024 End: 07-31-2024 ambulatory JORI HARRIS Not Available Start: 12-24-2023 Chart abstracting Luanne ambrocio MD Work Phone: [facility] Start: 02-11-2023 End: 02-12-[address] JORI HARRIS Facility:[facility]1 Procedures Date Procedure Procedure Detail Performing Clinician Start: 07-31-2024 ALL CBC WITH AUTO DIFF Jori Harris MD Work Phone: Start: 02-11-[address] JORI CHILEL Comment on above: Performed By: #### F T4, VITAD, PSASC #### [facility] [address] [place] [address] Dr. Baldemar Marc Plan of Treatment Date Care Activity Detail Author Start: 08-06-2025 Patient referral [facility] Work Phone: Start: 08-06-2025 End: 08-06-2025 Patient encounter procedure 08/06/2025 9:30 AM EDT Office Visit [facility] [address] [place] [phone] Jori Harris MD [address] [place] [phone] [facility] Start: 07-16-2025 Influenza vaccination Influenza Vacc ine (#1) [facility] Start: 01-29-2025 End: 01-29-2025 Patient encounter procedure 01/29/2025 9:15 AM EDT Office Visit [facility] [address] [place] [phone] Jori Harris MD [address] [place] [phone] [facility] Start: 07-31-2024 End: 07-31-2025 Basic metabolic 1998 panel - Serum or Plasma Basic metabolic panel Lab Routine Stage 3a chronic kidney disease (CKD) (CMS/HCC) Expected: 07/31/2024 (Approximate), Expires: 07/31/2025 [facility] Work Phone: Comment on above: Expected: 07/31/2024 (Approximate), Expires: 07/31/2025 Start: 07-31-2024 End: 07-31-2025 CBC W Auto Differential panel - Blood CBC and differential Lab Routine Encounter for long-term current use of medication Expected: 07/31/2024 (Approximate), Expires: 07/31/2025 [facility] Comment on above: Expected: 07/31/2024 (Approximate), Expires: 07/31/2025 Start: 07-31-2024 End: 07-31-2025 Hepatic function 2000 panel - Serum or Plasma Hepatic function panel Lab Routine Encounter for long-term current use of medication Expected: 07/31/2024 (Approximate), Expires: 07/31/2025 [facility] Comment on above: Expected: 07/31/2024 (Approximate), Expires: 07/31/2025 Start: 07-31-2024 End: 07-31-2025 Lipid 1996 panel - Serum or Plasma Lipid panel Lab Routine Dyslipidemia ([facility]/HCC) Expected: 07/31/2024 (Approximate), Expires: 07/31/2025 [facility] Comment on above: Expected: 07/31/2024 (Approximate), Expires: 07/31/2025 Start: 07-31-2024 End: 07-31-2025 Prostate specific Ag [Mass/volume] in Serum or Plasma PSA Lab Routine Screening PSA (prostate specific antigen) Expected: 07/31/2024 (Approximate), Expires: 07/31/2025 [facility] Comment on above: Expected: 07/31/2024 (Approximate), Expires: 07/31/2025 Start: 07-31-2024 End: 07-31-2025 Thyrotropin [Units/volume] in Serum or Plasma TSH Lab Routine Adult hypothyroidism ([facility]/HCC) Expected: 07/31/2024 (Approximate), Expires: 07/31/2025 [facility] Comment on above: Expected: 07/31/2024 (Approximate), Expires: 07/31/2025 Start: 07-31-2024 End: 07-31-2025 Thyroxine (T4) free [Mass/volume] in Serum or Plasma T4, free Lab Routine Adult hypothyroidism ([facility]/HCC) Expected: 07/31/2024 (Approximate), Expires: 07/31/2025 [facility] Comment on above: Expected: 07/31/2024 (Approximate), Expires: 07/31/2025 Start: 07-31-2024 End: 07-31-2025 Triiodothyronine (T3) Free [Mass/volume] in Serum or Plasma T3, free Lab Routine Adult hypothyroidism ([facility]/HCC) Expected: 07/31/2024 (Approximate), Expires: 07/31/2025 [facility] Comment on above: Expected: 07/31/2024 (Approximate), Expires: 07/31/2025 Start: 07-31-2024 End: 07-31-2024 Patient encounter procedure 07/31/2024 9:45 AM EDT Office Visit [facility] [address] [place] [phone] Jori Harris MD [address] [place] [phone] [facility] Comment on above: Arrived Start: 07-16-2024 Influenza vaccination Influenza Vacc ine (#1) [facility] Start: 02-08-2024 End: 02-08-2024 Patient encounter procedure 02/08/2024 10:45 AM EDT Office Visit [facility] [address] [place] [phone] Jori Harris MD [address] [place] [phone] [facility] Start: 01-17-2024 End: 01-17-2024 Patient encounter procedure 01/17/2024 9:50 AM EST Office Visit [facility] [address] [facility] [address] [place] [address] Luanne Richardson MD [address] [facility] [address] [place] [address] [facility] Start: 12-28-2023 End: 12-28-2023 Patient encounter procedure 12/28/2023 10:30 AM EST Procedure Visit [facility] Luanne Richardson MD [address] [facility] [address] [place] [address] [facility] Start: 1945 Medicare Annual Well ness (AWV) Medicare Annual Wellness (AWV) [facility] Comprehensive metabo lic 2000 panel - Serum or Plasma [facility] Patient referral [facility] Work Phone: [facility] Immunizations Immunization Date Immunization Notes Care Provider Fa cility 09-03-2024 influenza virus vacc ine, unspecified formulation Jori Harris MD Work Phone: [facility] 09-16-2023 influenza virus vacc ine, unspecified formulation Jori Harris MD Work Phone: [facility] 10-27-2018 pneumococcal polysaccharide vaccine, 23 valmarcia Richardson MD Work Phone: [facility] 11-12-2017 pneumococcal polysaccharide vaccine, 23 valmarcia Richardson MD Work Phone: [facility] 10-18-2017 pneumococcal conjuga te vaccine, 13 valent Luanne Richardson MD Work Phone: [facility] 05-23-2014 zoster vaccine, live Luanne Richardson MD Work Phone: [facility] Payers Date Payer Category Payer Private Health Insurance [employer] Dc mber [id number] 2022 Unknown [employer] JANE [id number] 2022-Present [address] [place] [address] [id number] 2011 Medicare [id number] 1959 Medicare [id number] 1959 Unknown [id number] 1945 Unknown [id number] 1946 Unknown [id number] 1946 Unknown [id number] 1946 Unknown [id number] Medicare Medicare [id number] Unknown Rosalio BC/BS [id number] Social History Date Type Detail Facility Start: 09-16-2023 Tobacco smoking status TXIS Never smoked tobacco [facility] Start: 09-16-2023 Tobacco use and exposure Smokeless tobacco non-user [facility] Start: 12-02-2023 End: 02-07-2025 Alcohol intake Current drinker of alcohol (finding) [facility] Start: 12-04-2023 End: 02-07-2025 History of Social function [facility] Start: 12-04-2023 End: 02-07-2025 Alcohol Use Disorder Identification Test - Consumption [...] [facility] Start: 12-01-2023 Alcohol Comment caffeine intake : 1-2 cups per day [facility] Start: 1945 Sex Assigned At Not on file [facility] Start: 08-06-2025 Tobacco smoking status TXIS Ex-smoker (finding) [facility] Sex Male (finding) [facility] Start: 1945 Sex Assigned At Male [facility] Evaluation note 08-06-2025 Note Date & Type Note Facility 08-06-2025 Evaluation note Diagnosis Onset Date Resolution Adult hypothyroidism acute Sept ember 2024 8:36am Benign essential hypertension acute August 06, 2025 8:36am Chronic kidney disease, stage 3a acute August 06, 2025 8:36am Encounter for long-term (current) use of medications acute August 06, 2025 8:36am Medicare annual wellness visit, subsequent acute July 8:36am Screening PSA (prostate specific antigen) acute July 8:36am [facility] Work Phone: Evaluation note 08-06-2025 Note Date & Type Note Facility 08-06-2025 Evaluation note Diagnosis Onset Date Resolution Adult hypothyroidism acute Sept emb2024 8:36am Benign essential hypertension acute August 06, 2025 8:36am Chronic kidney disease, stage 3a acute August 06, 2025 8:36am Encounter for long-term (current) use of medications acute August 06, 2025 8:36am Medicare annual wellness visit, subsequent acute July 8:36am Recurrent right knee instability acute August 06, 2025 8:36am Screening PSA (prostate specific antigen) acute July 8:36am [facility] Work Phone: History of Present illness Narrative 07-31-2024 Jori Harris MD - 07/31/2024 10:19 AM Tommie Harris MD - 07/31/2024 10:18 AM Tommie Harris MD - 07/31/2024 10:18 AM Tommie Harris MD - 07/31/2024 10:18 AM EDT Note Date & Type Note Facility 07-31-2024 History of Presen t illness Narrative Associated Problem(s): Obesity (BMI 30-39.9) Weight down 11 pounds in past year. Associated Problem(s): Chronic gouty arthritis No flares and continue allopurinol. Associated Problem(s): Bilateral edema of lower extremity Edema controlled with medication and continue. Elevate legs PRN. Associated Problem(s): Adult hypothyroidism (CMS/HCC) No signs of low thyroid and check labs. Associated Problem(s): Benign essential hypertension (CMS/HCC) BP controlled and monitor PRN. Images from the original note were not included. Subjective Patient ID: Ayaz Diamond is a 78 y.o. male who presents for No chief complaint on file.. Follow up HTN, gout, and edema. Patient feels well today. Checking BP PRN and typically controlled. BP normal today. Taking medication daily and tolerating without side effects. Gout controlled with allopurinol. No joint pain or stiffness. No swelling or erythema. Edema controlled with medication. Mild swelling at end of day and if on feet a lot. Edema improved in am and with elevation. Weight down 11 pounds in past year. Tries to watch diet and eat healthy. Increased fruits and vegetables. Smaller portions and limits snacking. Tries to limit total daily calories. Due for labs. Review of Systems Constitutional: Negative for fatigue. Respiratory: Negative for cough, shortness of breath and wheezing. Cardiovascular: Negative for chest pain and palpitations. Gastrointestinal: Negative for abdominal pain, diarrhea, nausea and vomiting. Genitourinary: Negative for dysuria. Objective Physical Exam Constitutional: General: He is not in acute distress. Appearance: Normal appearance. HENT: Head: Normocephalic. Right Ear: Tympanic membrane and ear canal normal. Left Ear: Tympanic membrane and ear canal normal. Eyes: Extraocular Movements: Extraocular movements intact. Pupils: Pupils are equal, round, and reactive to light. Cardiovascular: Rate and Rhythm: Normal rate and regular rhythm. Heart sounds: No murmur heard. No friction rub. No gallop. Pulmonary: Breath sounds: Normal breath sounds. No wheezing, rhonchi or rales. Abdominal: General: Bowel sounds are normal. There is no distension. Palpations: Abdomen is soft. Tenderness: There is no abdominal tenderness. There is no guarding or rebound. Musculoskeletal: Left lower leg: No edema. Neurological: Mental Status: He is alert. Assessment/Plan Problem List Items Addressed This Visit Benign essential hypertension (CMS/HCC) - Primary BP controlled and monitor PRN. Chronic gouty arthritis No flares and continue allopurinol. Adult hypothyroidism (CMS/HCC) No signs of low thyroid and check labs. Relevant Orders TSH T3, free T4, free Dyslipidemia (CMS/HCC) Relevant Orders Lipid panel Stage 3a chronic kidney disease (CKD) (CMS/HCC) Relevant Orders Basic metabolic panel Bilateral edema of lower extremity Edema controlled with medication and continue. Elevate legs PRN. Obesity (BMI 30-39.9) Weight down 11 pounds in past year. 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) Bilateral edema of lower extremity Adult hypothyroidism (CMS/HCC) Unspecified hypothyroidism Stage 3a chronic kidney disease (CKD) (CMS/HCC) Dyslipidemia (CMS/HCC) Other and unspecified hyperlipidemia Obesity (BMI 30-39.9) Screening PSA (prostate specific antigen) Special screening for malignant neoplasm of prostate Encounter for long-term current use of medication documented in this encounter [facility] Evaluation note Note Date & Type Note Facility Evaluation note Diagnosis Benign essential hypertension- Primary Essential hypertension, benign Chronic gouty arthritis 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) Bilateral edema of lower extremity Obesity (BMI 30-39.9) Benign essential hypertension- Primary Essential hypertension, benign Chronic gouty arthritis 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) Bilateral edema of lower extremity Adult hypothyroidism Unspecified hypothyroidism Stage 3a chronic kidney disease (CKD) (CMS-HCC) Dyslipidemia Other and unspecified hyperlipidemia Obesity (BMI 30-39.9) Screening PSA (prostate specific antigen) Special screening for malignant neoplasm of prostate Encounter for long-term current use of medication Benign essential hypertension- Primary Essential hypertension, benign Chronic gouty arthritis 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) Bilateral edema of lower extremity Stage 3a chronic kidney disease (CKD) (CMS-HCC) Essential (primary) hypertension Unspecified essential hypertension Benign essential hypertension Essential hypertension, benign Hypothyroidism, unspecified Hypothyroidism Unspecified hypothyroidism documented in this encounter [facility] Discharge instructions Note Date & Type Note Facility Hospital Discharge instructions Ambulatory OrdersReferral to Orthopedic Surgery Time Frame: 08/06/25, Location: None Selected [facility] Work Phone: Reason for referral (narrative) Note Date & Type Note Facility Reason for referral (narrative) No reason for referral information available [facility] Work Phone: Summary Purpose Family History No Family History Records FoundNo Family History Records Found Advance Directives Advance Directive Response Recorded Date/ Time Advance Directives No July 8:33am Chief Complaint and Reason for Visit Reason for Visit Admit Date Adult hypothyroidism August 06 8:36am Benign essential hypertension August 06, 2025 8:36am Chronic kidney disease, stage 3a [facility] 2024 8:36am Encounter for long-term (current) use of medications August 06, 2025 8:36am Medicare annual wellness visit, subseque nt August 06, 2025 8:36am Screening PSA (prostate specific antigen ) August 06, 2025 8:36am Reason for Visit Admit Date Adult hypothyroidism August 06 8:36am Benign essential hypertension August 06, 2025 8:36am Chronic kidney disease, stage 3a [facility] 2024 8:36am Encounter for long-term (current) use of medications August 06, 2025 8:36am Medicare annual wellness visit, subseque nt August 06, 2025 8:36am Recurrent right knee instability [facility] 2024 8:36am Screening PSA (prostate specific antigen ) August 06, 2025 8:36am Additional Source Comments (unrecognized sect ion and content) No Status Records FoundNo Status Records Found INFORMATION SOURCE (unrecogn ized section and content) DATE CREATED AUTHOR 02/20/2023 [facility] DATE CREATED AUTHOR 'S ORGANIZ ATION 02/08/2025 [facility] Care Teams (unrecognized sec tion and content) Customer Solutions Architect Relationship Specialty Start Date End Date Jori Harris MD PCP - General Family Medicine 07/16/23 Customer Solutions Architect Relationship Specialty Start Date End Date Jori Harris MD [address] [place] [phone] PCP - General Family Medicine 12/28/23 Customer Solutions Architect Relationship Specialty Start Date End Date Jori Harris MD [address] [place] [phone] PCP - [facility] 12/28/23 Customer Solutions Architect Relationship Specialty Start Date End Date Jori Harris MD [address] [place] [phone] PCP - General Family Medicine 12/28/23 Customer Solutions Architect Relationship Specialty Start Date End Date Jori Harris MD [address] [place] [phone] PCP - General Family Medicine 12/28/23 Jori Harris MD [address] [place] [phone] PCP - [facility] 12/22/24 Team Status: Active Member Role Status Dates Jori Harris MD Primary Care Provider Active Team Status: Inactive Member Role Status Dates Jori Harris MD Primary Care Provider Active S tart: August 06, 2025 End: August 06, 2025 Jori Harris MD Attending Provider Active Star t: August 06, 2025 End: August 06, 2025 Reason for Visit (unrecogniz ed section and content) Reason Comments Med Refill Goals (unrecognized section and content) Goals may be documented in a n alternate sectionGoals may be documented in an alternate section FOR RECORDS PERTAINING TO PATIENTS WHO ARE [...] BE BASED ON THE PRIMARY CLINICAL RECORDS. [facility] [employer] [facility]. provides no warranty or guarantee of the accuracy or completeness of information in this document.
[2025-08-06 11:25] LABS: Hematocrit 35.5 % (42.0-54.0); Hemoglobin 11.9 g/dL (14.0-18.0); Immature Granulocytes Abs Auto 0.01 10^3/uL (0.00-0.03); Immature Granulocytes Pct Auto 0.2 % (0.0-0.5); Lymphocytes Absolute Auto 1.4 10^3/uL (1.2-3.8); Mean Corpuscular HGB Conc 33.5 g/dL (29.9-35.2); Mean Corpuscular Hemoglobin 33.1 pg (25.9-34.0); Mean Corpuscular Volume 98.6 fL (80.0-94.0); Platelet Count 146 10^3/uL (150-450); Red Blood Count 3.60 10^6/uL (4.70-6.10); White Blood Count 6.0 10^3/uL (4.0-11.0)
[2025-08-06 11:44] LABS: Alanine Aminotransferase 18 U/L (16-63); Albumin Globulin Ratio 1.1; Albumin Level 3.7 g/dL (3.4-5.0); Alkaline Phosphatase 65 U/L (46-116); Anion Gap 14.9; Aspartate Amino Transferase 19 U/L (15-37); Blood Urea Nitrogen 37.0 mg/dL (7.0-18.0); Calcium 9.0 mg/dL (8.5-10.1); Carbon Dioxide 25.4 mmol/L (21.0-32.0); Chloride 105 mmol/L (98-107); Cholesterol 94 mg/dL (<=200); Estimated GFR (African America 51 (>=60 mL/min/1.73m^2); Estimated GFR (Non-African Ame 42 (>=60 mL/min/1.73m^2); Globulin 3.3 g/dL; Glucose 102 mg/dL (74-106); HDL Cholesterol 47 mg/dL (40-60); Potassium 4.3 mmol/L (3.5-5.1); Sodium 141 mmol/L (136-145); Thyroid Stimulating Hormone 0.223 uIU/mL (0.358-3.740); Total Protein 7.0 g/dL (6.4-8.2); Triglycerides 52 mg/dL (<=150); VLDL CHOLESTEROL 10.4 mg/dL
[2025-08-07 05:07] LABS: PSA, Free 0.08 ng/mL
== END 2025-08-06 10:40 | disposition home or self-care (01) ==
LOC: LAB 10:44
PROVIDERS: PCP Family Medicine; Visit Provider Family Medicine
DX: Z79.899 Other long term (current) drug therapy (principal); E78.5 Hyperlipidemia, unspecified; E03.9 Hypothyroidism, unspecified; Z12.5 Encounter for screening for malignant neoplasm of prostate
CPT/HCPCS: 36415; 80053; 80061; 84153; 84154; 84439; 84443; 85025